=== PATIENT | female | born 1990 | race Caucasian/White ===

== ENCOUNTER 2025-01-22 11:38 | Emergency (ER) | payer MEDICAID, SELFPAY ==
[2025-01-22 11:56] VITALS: BP 105/73; PULSE 63; RESP 16; TEMP 35.9; O2SAT 100; BMI 16.8
--- OUTSIDE RECORDS SUMMARY | 2025-01-22 12:38 | XMS_ITS | Clinical Summary ---
Author Organization [facility] Address [address] [place] [id number] Care Team Providers Care Helpdesk Manager Name Role Phone Tyrell Tong MD Primary Care Provider [phone] Allergies Active Allergy Reactions Criticality Noted Date Comments Lamotrigine Other (See Comments) High 06/04/2018 confusion Medications LORazepam (ATIVAN) 1 MG tablet Take 1 mg by mouth every 6 hours as needed for anxiety or seizures Active omeprazole (PRILOSEC) [address] capsuleIndicatio ns:Alcohol use, unspecified with other alcohol-induced disorder (H) Take 1 capsule (20 mg) by mouth 2 times daily (before meals) 60 capsule 1 0 Active Additional Information Patient not taking.Informant: Self, Reported on 07/05/2021 levETIRAcetam (KEPPRA) 500 MG tabletIndication s:Focal epilepsy (H) TAKE 1 TABLET BY MOUTH EVERY MORNING AND 2 TABLETS BY MOUTH EVERY EVENING 270 tablet 1 0 Active midodrine (PROAMATINE) 10 MG tablet Take 10 mg by mouth 3 times daily Active potassium chloride ER (KLOR-CON M) 20 MEQ CR tablet Take 20 mEq by mouth daily (with breakfast) Active thiamine (B-1) 100 MG tabletIndication s:Alcohol use, unspecified with other alcohol-induced disorder (H) Take 1 tablet (100 mg) by mouth daily 30 tablet 1 0 Active lactulose (CHRONULAC) 10 GM/15ML solutionIndicati ons:Alcoholic cirrhosis of liver with ascites (H) Take 30 mLs (20 g) by mouth daily 946 mL 10/11/202 0 Active Additional Information Patient taking differently:20 g Oral3 TIMES DAILY, Reported on 06/30/2021 Multiple Vitamins-Mineral s (TAB-A-EDEL) TABSIndications: Alcohol use, unspecified with other alcohol-induced disorder (H) TAKE 1 TABLET BY MOUTH EVERY DAY 90 tablet 1 1 Active folic acid (FOLVITE) 1 MG tabletIndication s:Alcohol use, unspecified with other alcohol-induced disorder (H) Take 1 tablet (1 mg) by mouth daily 90 tablet 3 1 Active spironolactone (ALDACTONE) 25 MG tabletIndication s:Alcoholic cirrhosis of liver with ascites (H) Take 4 tablets (100 mg) by mouth daily 120 tablet 11 2 Active sulfamethoxazole -trimethoprim (BACTRIM/SEPTRA) 8 mg/mL suspension Take 35 mLs by mouth 2 times daily 2 Active XIFAXAN 550 MG TABS tablet Take 550 mg by mouth 2 times daily 2 Active vitamin A 3 MG (47383 UNITS) capsule Take 1 capsule by mouth three times a week 2 Active furosemide (LASIX) 20 MG tabletIndication s:Alcoholic hepatitis with ascites (H) Take 2 tablets (40 mg) by mouth daily 180 tablet 1 2 Active Active Problems Problem Noted Date Diagnosed Date Confusion 02/28/2020 Epilepsy 06/04/2019 Immunizations Immunization Administration Dates Next Due Flu, Unspecified 08/20/2016, 4,03/10/2013,02/15,03/09/2010 HPV Quadrivalent 07/29/2013,12/20/2012, 7 Hepatitis A (VAQTA)(ADULT 19+) 06/09/2019 Hepatitis B, Adult (Energix-B/Recombivax HB) 06/09/2019 Hepatitis B, Peds (Engerix-B/Recombivax HB) 09/04/2002 Historic Hib Hib-titer 11/14/1993,09/26/1990 Historical DTP/aP 11/14/1993, 1,04/17/1990,10/08 Influenza (H1N1) 03/30/2009 Influenza (IIV3) PF 03/09/2010,04/30/2009 Influenza Vaccine >6 months,quad, PF 06/09/2019, 08/20/2016 MMR (MMRII) 09/04/2002,11/14/1993 Meningococcal ACWY (Menactra ) 04/17/2007 OPV, unspecified 11/14/1993,04/17/1990, 0 Pneumococcal 23 valent 03/31/2014 TDAP Vaccine (Adacel) 02/16/2012 Tdap (Adult) Unspecified Formulation 09/04/2002 Social History Tobacco Use Types Packs/Day Years Used Date Smoking Tobacco: Never Smokeless Tobacco: Never Tobacco Cessation:Counseling Given: No Alcohol Use Standard Drinks/Week Comments Not Currently 5 (1 standard drink = 0.6 oz pur e alcohol) last drink 06/03/2019 PHQ-2 Answer Date Recorded PHQ-2 Score 0 06/30/2021 Adolescent Education Answer Date Record ed Getting School Help Needed Not on file 02/09 Comments Unknown Sex and Gender Information Value Date Recorded Sex Assigned at Female 05/19/2021 11:35 AM ADMINISTRATIVE SUPPORT COORDINATOR Legal Sex Female 12:34 PM CDT Gender Identity Female 05/19/2021 11:35 AM ADMINISTRATIVE SUPPORT COORDINATOR Sexual Orientation Straight 05/19/2021 11 :35 AM ADMINISTRATIVE SUPPORT COORDINATOR Last Filed Vital Signs Vital Sign Reading Time Taken Comments Blood Pressure 102/70 06/09/2021 10:25 AM ADMINISTRATIVE SUPPORT COORDINATOR Pulse 107 06/09/2021 10:25 AM ADMINISTRATIVE SUPPORT COORDINATOR Temperature 36.8 C (98.3 F) 02/29/2020 9:50 AM CDT Respiratory Rate 14 02/29/2020 9:50 AM CDT Oxygen Saturation 100% 06/09/2021 10:25 AM ADMINISTRATIVE SUPPORT COORDINATOR Inhaled Oxygen Concentration - - Weight 51.8 kg (114 lb 3.2 oz) 02/29/2020 6:41 A M CDT Height 167.6 cm (5' 6) 06/09/2021 10:25 AM ADMINISTRATIVE SUPPORT COORDINATOR Body Mass Index 18.43 07/30/2019 9:00 AM CDT Plan of Treatment Not on file Insurance [place]UL[place] CÉS[place] [id number] [facility] Advance Directives For more information, please contact: [phone] * Full Code (Latest Code Status on File) Date Activated Date Inactivated Comments 02/28/2020 3:58 PM 02/29/2020 6:26 PM All basic and advanced life-sustaining interventions are performed as appropriate Question Answer Comments Code status determined by: Discussion with patie nt/ legal decision maker * Full Code Date Activated Date Inactivated Comments 02/28/2020 2:45 AM 02/28/2020 3:58 PM All basic and advanced life-sustaining interventions are performed as appropriate Question Answer Comments Code status determined by: Unable to det ermine; FULL CODE until documents or legal decision maker available * Full Code Date Activated Date Inactivated Comments 06/09/2019 1:05 PM 02/28/2020 1:15 AM Question Answer Comments Code status determined by: Discussion with patie nt/legal decision maker * Full Code Date Activated Date Inactivated Comments 06/04/2019 10:57 AM 06/09/2019 1:05 PM Question Answer Comments Code status determined by: Discussion with patie nt/legal decision maker Care Teams Helpdesk Manager Relationship Specialty Start Date End Date Tyrell Tong MD [address] [facility] J[place] CÉSAR [place] [id number] PCP - General Family Practice 10/03/16
--- OUTSIDE RECORDS SUMMARY | 2025-01-22 12:38 | XMS_ITS | Clinical Summary ---
Author Organization [facility] Address [address] [place] [id number] Care Team Providers [employer] Name Role Phone William Sandhu MD Primary Care P rovider Allergies Active Allergy Reactions Criticality Noted Date Comments Blood-Group Specific Substance Other - Describe In Comment Field,Dizziness 05/25/2021 Patient has an anti-Kpa antibody and a nonspecific antibody. Blood products may be delayed. Draw patient 24 hours prior to transfusion. For [email or web address] testing, draw one red top and two purple top tubes for all Type and Screen orders. Patient has an anti-Kpa antibody and a nonspecific antibody. Blood products may be delayed. Draw patient 24 hours prior to transfusion. For [email or web address] testing, draw one red top and two purple top tubes for all Type and Screen orders. Lamotrigine Confusion,Seizures, Syncope,Other - Describe In Comment Field High 06/04/2018 confusion confusion Medications * This document contains information received from the source organization and may not represent a complete record from that organization. furosemide (LASIX) 40 mg tabletIndications: Alcoholic hepatitis with ascites (HC) Take 1 Tablet (40 mg) by mouth once daily in the morning. 90 Tablet 01/22/20 25 Active spironolactone (ALDACTONE) 100 mg tabletIndications: Decompensated hepatic cirrhosis (HC) Take 1 Tablet (100 mg) by mouth once daily in the morning. 90 Tablet 01/22/20 25 Active lactulose 10 gram/15 mL solutionIndication s:Decompensated hepatic cirrhosis (HC),Hyperammonemi a (HC) Take 30 mL (20 g) by mouth 3 times daily if needed for Constipation. 2700 mL 01/22/20 25 Active levETIRAcetam (KEPPRA) 500 mg tabletIndications: Seizure, partial (HC) Take 1 Tablet (500 mg) by mouth two times daily. 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 30 Tablet 1 01/22/20 25 Active folic acid 1 mg tabletIndications: Alcoholic hepatitis without ascites (HC) Take 1 Tablet (1 mg) by mouth once daily. 90 Tablet 3 01/22/20 25 Active folic acid 1 mg tabletIndications: Alcoholic hepatitis without ascites (HC) Take 1 Tablet (1 mg) by mouth once daily. 30 Tablet 1 06/20/19 025 Discontin ued(Reord er (E-cancel not sent)) levETIRAcetam (KEPPRA) 500 mg tabletIndications: Seizure, partial (HC) Take 1 Tablet (500 mg) by mouth two times daily. 60 Tablet 1 06/20/19 025 Discontin ued(Reord er (E-cancel not sent)) [id number]-A-[id number] ons:Alcoholic hepatitis with ascites (HC) Take 1 Tablet by mouth once daily. 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 30 Tablet 1 06/20/19 025 Discontin ued(Reord er (E-cancel not sent)) traZODone (DESYREL) 50 mg tabletIndications: Anxiety and depression Take 1 Tablet (50 mg) by mouth at bedtime if needed for Sleep. 30 Tablet 1 06/20/19 025 Discontin ued(*Med complete/ Regimen complete/ Level of care change) acamprosate 333 mg tablet Take 666 mg by mouth. 10/03/19 025 Discontin ued(*Med complete/ Regimen complete/ Level of care change) oxyCODONE 10 mg tablet 10/03/19 025 Discontin ued(*Med complete/ Regimen complete/ Level of care change) oxyCODONE 5 mg immediate release tabletIndications: Abdominal pain, epigastric Take 1 Tablet (5 mg) by mouth every 4 hours if needed for Pain. 10 Tablet 10/07/19 025 Discontin ued(*Med complete/ Regimen complete/ Level of care change) lidocaine 5 % topical patchIndications:A bdominal pain, epigastric Apply on dry, clean, hairless skin. Apply 1 patch to painful area of skin for up to to 12 hours within 24 hour period. 30 Patch 10/07/19 025 Discontin ued(*Med complete/ Regimen complete/ Level of care change) rifAXIMin 550 mg tabletIndications: Abdominal pain, epigastric,Acute hepatic encephalopathy (HC) Take 1 Tablet (550 mg) by mouth two times daily. 60 Tablet 5 10/07/19 025 Discontin ued(*Med complete/ Regimen complete/ Level of care change) furosemide 20 mg tabletIndications: Alcoholic hepatitis with ascites (HC) Take 2 Tablets (40 mg) by mouth once daily in the morning. 180 Tablet 1 10/28/19 25 025 Discontin ued(Reord er (E-cancel not sent)) spironolactone 25 mg tabletIndications: Decompensated hepatic cirrhosis (HC) Take 4 Tablets (100 mg) by mouth once daily in the morning. 360 Tablet 1 10/28/19 25 025 Discontin ued(Reord er (E-cancel not sent)) famotidine 20 mg tabletIndications: Abdominal pain, epigastric Take 1 Tablet (20 mg) by mouth two times daily. 180 Tablet 3 10/28/19 25 025 Discontin ued(*Med complete/ Regimen complete/ Level of care change) lactulose 10 gram/15 mL solutionIndication s:Decompensated hepatic cirrhosis (HC),Hyperammonemi a (HC) TAKE 30 MLS BY MOUTH THREE TIMES DAILY NEEDED FOR CONSTIPATION 2700 mL 3 10/30/19 25 025 Discontin ued(Reord er (E-cancel not sent)) gabapentin (NEURONTIN) 300 mg capsuleIndications :Alcohol use disorder, severe, dependence (HC) TAKE 1 CAPSULE(300 MG) BY MOUTH THREE TIMES DAILY 270 Capsule 12/12/19 25 025 Discontin ued(*Med complete/ Regimen complete/ Level of care change) Active Problems Problem Noted Date Diagnosed Date Stage 3 chronic kidney disease 01/19/2025 Overview (01/21/2025): 10/01/24: Cr 1.34 mg/dL 10/01/24: GFR 53 mL/min/BSA 10/01/24: BUN 13 mg/dL On meds: folic acid, furosemide, potassium chloride, spironolactone, zinc sulfate AI Summary: The patient had a history of decompensated alcoholic liver disease, severe protein calorie malnutrition, and chronic kidney disease, as mentioned on 08/31/2021. The patient was also noted to have chronic renal failure, unspecified CKD stage N18.9 on 08/31/2021. On 07/13/2021, the patient was noted to have severe anemia, chronic liver failure, chronic kidney disease, and chronic leukocytosis, and on 07/16/2021, the patient was assessed to have acute kidney injury on chronic kidney disease. 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 Recommend nonemergent, outpatient CT or MR with a pancreatic protocol for further assessment. 06/20/2023 CT Seizure disorder 06/20/2023 Chronic pancreatitis 07/03/2022 Overview (01/19/2025): AI Summary: As of 09/25/24: The patient has a history of chronic pancreatitis, alcohol- related, with imaging findings consistent with the condition, including scattered pancreatic parenchymal calcifications and a cystic lesion in the pancreatic tail. The patient underwent IR coil embolization of the right gastroepiploic artery and Gelfoam embolization of the PDA pancreaticoduodenal arcade on 07/21/2021. There is mention of possible [id number] pancreatitis, but this is not definitively confirmed. 10/01/24: HR 74.0 /min 10/01/24: BP 100/65 09/21/24: Lipase 227 U/L On meds: folic acid, furosemide, potassium chloride, spironolactone, zinc sulfate Recent encounter dx: 06/29/23: Office Visit - Division of Gastroenterology in [place], [place], Gastroenterology and Hepatology (from [facility]) 04/26/23: Appointment - [facility] 01/25/23: Appointment - [facility] 07/03/22: Appointment - [facility] 07/13/21: Discharge - [facility], [facility], Recent studies: 09/21/24: Interpretation of Outside CT Abdomen and or Pelvis by Bernabe Sewell M.D. (from [facility]) ... [-] 1. Sequelae of chronic pancreatitis with possible uncomplicated acute on chronic pancreatitis. 2. Pancreatic cystic lesions, better evaluated on abdominal MRI 06/29/2023. 3. Bilateral nonobstructing renal calculi. No hydronephrosis. No obstructing ureteral calculi. 4. Patchy opacities in the lung bases, likely a combination of infectious/inflammatory process and atelectasis. ... [-] Sequelae of chronic pancreatitis with possible uncomplicated acute on chronic pancreatitis. ... [+] Scattered pancreatic parenchymal calcifications consistent with chronic pancreatitis. 09/20/24: Outside CT Body by Provider Not In System (from [facility]) ... [-] Pancreas: Scattered calcifications suggestive of chronic pancreatitis. 06/29/23: mr abdomen mrcp without and with iv contrast by Mouna Salazar M.D. (from [facility]) ... [-] No significant change in the multiple cystic pancreatic lesions which may represent IPMN's rather than pseudocyst. No other concerning MR features such as nodules or septations. Diffuse pancreatic parenchymal atrophy with mild pancreatic ductal dilatation in the tail of pancreas, likely sequelae of prior chronic pancreatitis. ... [-] Diffuse pancreatic parenchymal atrophy with mild pancreatic ductal dilatation in the tail of pancreas, likely sequelae of prior chronic pancreatitis. Recent notes: 09/25/24: Discharge Summaries - Transfer Note by Ebenezer Mix, B.Ch., B.A.O. (from [facility]) ... [+] Edna Garza is a 34 y.o. female with a past medical history significant for alcohol abuse, alcoholic cirrhosis, SBP (previously on ciprofloxacin), hepatic encephalopathy, focal seizures (on Keppra), chronic pancreatitis, cystic mass on pancreas, anxiety, and depression. 09/25/24: Consult Notes - Consults by Dolly Pepe RDN, TULIO, M.P.H. (from [facility]) ... [+] Medical History[1] alcohol abuse, alcoholic cirrhosis, chronic pancreatitis, cystic mass on pancreas, anxiety, and depression 09/25/24: Discharge Summaries - Transfer Note by Ebenezer Foster, B.Chir. (from [facility]) ... [+] BRIEF SUMMARY OF HOSPITALIZATION Edna Garza is a 34 y.o. female with a past medical history significant for alcohol abuse, alcoholic cirrhosis, SBP (previously on ciprofloxacin), hepatic encephalopathy, focal seizures (on Keppra), chronic pancreatitis, cystic mass on pancreas, anxiety, and depression. ... [+] #8 History of chronic pancreatitis, alcohol-related 09/25/24: H&P Notes - H&P by Kd Velez M.D. (from [facility]) ... [+] In brief, Edna Garza is a 34 y.o. female with a past medical history significant for alcohol use disorder, chronic pancreatitis with cysts, anxiety depression with initial hospitalization in the setting of acute drug- induced liver injury in the setting of decompensated hepatic cirrhosis due to alcohol use. ... [-] #6 Chronic pancreatitis 09/25/24: Discharge Summaries - Transfe r Note by Bernabe Sewell M.D. (from [facility]) ... [+] Chronic pancreatitis s/p IR coil embolization of the right gastroepiploic artery and Gelfoam embolization of the PDA pancreaticoduodenal arcade (07/21/21) Acute upper GI bleeding 05/31/2021 Liver cirrhosis 05/06/2021 Overview (01/19/2025): AI Summary: As of 09/25/24: The patient has a history of decompensated alcoholic cirrhosis, complicated by acetaminophen and alcohol use, leading to acute liver injury and septic shock from a polymicrobial bloodstream infection (Streptococcus, E. coli, and Enterobacteriaceae). The patient also has a history of spontaneous bacterial peritonitis (SBP), hepatic encephalopathy, chronic pancreatitis, and alcohol abuse. Treatment included N-acetylcysteine (NAC) for acetaminophen overdose (09/21-09/24) and spironolactone for decompensated hepatic cirrhosis (prescribed on multiple occasions between 05/20/2021 and 06/20/2024), along with zinc sulfate prescribed on 06/20/2024 for the same reason. 05/23/16: GGT 472 IU/L 09/29/24: T Mario 0.8 mg/dL 09/25/24: INR 1.6 On meds: furosemide, spironolactone Recent encounter dx: 06/30/24: Appointment - [facility] 06/20/24: Appointment - [facility] 05/02/24: Appointment - [facility] 04/12/24: Support OP Encounter - [facility] 03/11/24: Support OP Encounter - [facility] Recent studies: 06/20/23: CT CHEST ABDOMEN PELVIS WO by Jorge Zacarias DO, Bud Fajardo MD ... [+] INDICATION: Polytrauma, blunt cirrhosis, altered LOC, chest contusion ... [+] ABDOMEN AND PELVIS: Slightly nodular hepatic contour which can be seen with cirrhosis. ... [+] 1. No obvious unenhanced CT evidence of an acute traumatic injury involving the chest, abdomen, or pelvis. 2. Examination the osseous structures is limited secondary to motion artifact, particularly the ribs, with no definitive displaced fractures or malalignment. If there is clinical concern for fracture, would recommend dedicated radiographs of the specific osseous structures. 3. Atrophic pa... 08/18/21: US Kidneys Bilateral with Bladder by Zoila Morales M.D. (from [facility]) ... [+] 1. Mild prominence of the left renal pelvis with no significant hydronephrosis. 2. Cirrhosis and large volume abdominopelvic ascites. ... [+] Cirrhosis and large volume abdominopelvic ascites. ... [-] Liver: Coarsened hepatic echotexture with surface nodularity compatible with cirrhosis. 08/17/21: ct abdomen pelvis with iv contrast by Ulisses Mccartney M.D. (from [facility]) ... [+] 1. Interval decrease in peripancreatic fluid collections for example the largest measures 3.5 cm, previously 6.9 cm. 2. Cirrhosis with large volume ascites 3. Bowel wall thickening of the large bowel at the hepatic flexure, nonspecific likely reactive or secondary to low protein state. ... [-] No new collections identified Cirrhosis. 06/12/21: CT CHEST ABDOMEN PELVIS WO by Bud Steve MD, Chriss Jimenez MD ... [+] In the abdomen, the liver is now seen to be small and nodular representing new cirrhosis. ... [+] CT of the abdomen shows new nodularity of the liver with new decrease in size consistent with new cirrhosis. No sign of portosystemic shunting. No sign of splenomegaly. 06/09/21: XR Chest 2 Views by Sb Boateng PA-C (from [place]) ... [+] pleural effusion, worsening WBC; Alcoholic cirrhosis of liver with ascites (H); Alcoholic hepatitis with ascites Recent notes: 09/25/24: Discharge Summaries - Transfer Note by Cheryl Mix., B.Ch., B.A.O. (from [facility]) ... [+] Edna Garza is a 34 y.o. female with a past medical history significant for alcohol abuse, alcoholic cirrhosis, SBP (previously on ciprofloxacin), hepatic encephalopathy, focal seizures (on Keppra), chronic pancreatitis, cystic mass on pancreas, anxiety, and depression. ... [+] Thrombocytopenia likely in the setting of cirrhosis and chronic alcohol use leading to bone marrow suppression and nutritional deficiencies. 09/25/24: Consult Notes - Consults by Dolly Pepe RDN, TULIO, M.P.H. (from [facility]) ... [+] Medical History[1] alcohol abuse, alcoholic cirrhosis, chronic pancreatitis, cystic mass on pancreas, anxiety, and depression ... [+] Alcoholic Cirrhosis Of Liver With Ascites (HCC) 08/19/2021 09/25/24: Discharge Summaries - Transfer Note by Ebenezer Fostre , B.Chir. (from [facility]) ... [+] BRIEF SUMMARY OF HOSPITALIZATION Edna Garza is a 34 y.o. female with a past medical history significant for alcohol abuse, alcoholic cirrhosis, SBP (previously on ciprofloxacin), hepatic encephalopathy, focal seizures (on Keppra), chronic pancreatitis, cystic mass on pancreas, anxiety, and depression. ... [+] #1 Decompensated alcoholic cirrhosis, with the acute injury this hospitalization primarily secondary to ischemic hepatopathy, contributed to also by recent acetaminophen and alcohol use. 09/25/24: Consult Notes - Consults by Barney Griggs M.D. (from [facility]) ... [+] Ms. Garza is a 34-year-old female with decompensated cirrhosis who was initially admitted for shock likely secondary to polymicrobial bloodstream infection. 09/25/24: H&P Notes - H&P by Kd Velez M.D. (from [facility]) ... [-] In brief, Edna Garza is a 34 y.o. female with a past medical history significant for alcohol use disorder, chronic pancreatitis with cysts, anxiety depression with initial hospitalization in the setting of acute drug- induced liver injury in the setting of decompensated hepatic cirrhosis due to alcohol use. ... [+] #1 Decompensated alcoholic cirrhosis complicated by acetaminophen use Alcoholic liver disease 05/06/2021 Hypomagnesemia 11/28/2019 History of alcohol abuse 11/28/2019 Anemia 11/28/2019 Hyponatremia 11/28/2019 Amenorrhea 07/11/2018 Alcohol-induced acute pancre atitis without infection or necrosis 08/19/2016 Anxiety and depression 03/29/2014 Overdose of muscle relaxant 03/28/2014 Eating disorder Resolved Problems Problem Noted Date Diagnosed Date Resolved Date Alcoholic hepatitis 01/19/2025 01/20/20 25 Overview (01/19/2025): AI Summary: As of 09/25/24: The patient has a history of alcoholic hepatitis without ascites, first noted on 05/23/2016. Treatment has included thiamine and folic acid, prescribed on multiple occasions between 12/01/2019 and 06/20/2024, as well as prednisolone (05/11/2021), omeprazole (12/01/2019, 04/05/2020, 10/12/2020), furosemide and spironolactone (12/01/2019). The patient's condition was mentioned in various notes as an active problem, primary diagnosis, and reason for medication prescriptions. 05/23/16: GGT 472 IU/L 09/29/24: T Mario 0.8 mg/dL 09/25/24: INR 1.6 On meds: furosemide, gabapentin, levetiracetam, spironolactone Recent encounter dx: 07/04/24: Appointment - [facility] 06/20/24: Appointment - [facility] 12/12/23: Support OP Encounter - [facility] 07/01/23: Support OP Encounter - [facility] 10/13/22: Appointment - [facility] Recent notes: 09/25/24: Consult Notes - Consults by Dolly Pepe RDN, LD, M.P.H. (from [facility]) ... [+] Alcoholic Hepatitis Without Ascites (HCC) 05/23/2016 09/20/24: ED Provider Note by JUAN JOSÉ Flores ... [-] Edna Garza is a 34 y.o. female with a medical history of alcoholic hepatitis without ascites, cystic mass on pancreas, chronic pancreatitis, anxiety, depression, anemia, alcohol abuse who presents to the Emergency Department by private vehicle for evaluation of abdominal pain. ... [+] Alcoholic hepatitis without ascites (HC) 07/04/24: Progress Notes - Follow up by Nash Paredes MD ... [-] Alcoholic hepatitis without ascites (Primary) 04/29/24: ED Provider Note by Drew Kenny MD ... [+] ? Alcoholic hepatitis without ascites 05/23/2016 12/13/23: Progress Notes by Yosi Maciel MD ... [+] ? Alcoholic hepatitis without ascites K70.10 Intentional overdose 01/22/2024 025 Enterococcus UTI 06/22/2023 01/19/2025 Anemia 06/21/2023 01/19/2025 Encephalopathy 06/20/2023 01/19/2025 Chest wall contusion 06/20/2023 025 Elevated MCV 06/20/2023 01/19/2025 Elevated TSH 06/20/2023 01/19/2025 Alcoholic hepatitis with ascites 07/05/2021 01/19/2025 Acute on chronic alcoholic liver disease 05/31/2021 01/19/2025 Metabolic acidosis 05/31/2021 Acute blood loss anemia 05/31/2021 09/0 05/2024 UTI (urinary tract infection) 05/31/2021 01/19/2025 Generalized weakness 05/30/2021 025 Hyperammonemia 05/20/2021 07/02/2023 Decompensated hepatic cirrhosis 05/08/2021 01/19/2025 Elevation of level of transa minase and lactic acid dehydrogenase (LDH) 05/06/2021 01/19/2025 Lactic acid increased 05/06/20212024 Metabolic acidosis, normal anion gap (NAG) 05/06/2021 01/19/2025 Jaundice 05/06/2021 01/19/2025 UTI (urinary tract infection) 05/06/2021 01/19/2025 Macrocytic anemia 05/06/2021 01/19/2025 Chronic respiratory alkalosis 11/30/2019 01/19/2025 Hypotension 11/30/2019 01/21/2025 Hypokalemia 11/28/2019 01/19/2025 Alcoholic liver damage 11/28/201901/19 Suspected COVID-19 virus infection 11/28/2019 01/19/2025 Severe protein-calorie malnutrition 11/28/2019 01/21/2025 Sore throat 11/28/2019 01/19/2025 Acute hepatic encephalopathy 11/28/2019 01/19/2025 Elevated prolactin level 11/28/201905/2024 Cystitis 05/25/2016 01/19/2025 Alcohol withdrawal delirium 05/24/2016 01/19/2025 Alcoholic hepatitis without ascites 05/23/2016 01/19/2025 Macrocytosis 05/23/2016 01/19/2025 Alcohol dependence with unsp ecified alcohol-induced disorder 03/28/2014 01/19/2025 Overview (01/19/2025): AI Summary: As of 09/20/24: The patient had a history of alcohol dependence with an unspecified alcohol-induced disorder (F10.29) as of 09/20/2024. 01/25/24: TSH 2.13 uIU/mL 10/01/24: Glu 102 mg/dL On meds: gabapentin, traZODone Recent encounter dx: 09/20/24: Discharge - [facility], [facility], [facility], [facility] / [facility] Recent notes: 09/20/24: ED Provider Note - Emergency Department Staff Physician Note by Asuncion Freire MD ... [+] Alcohol dependence with unspecified alcohol-induced disorder (HC) F10.29 Elevated liver enzymes 03/28/201401/19 Alcohol abuse 05/21/2013 01/19/2025 Overview (05/23/2016): s/p treatment IUD (intrauterine device) in place 08/19/2012 01/21/2025 Supervision of other normal 11/08/2011 08/26/2012 Overview (06/11/2012): It's a boy. Mildly enlarged renal pelvis on 20 wk us TDaP and flu vaccine given 02/16/2012 GBS negative Supervision of normal first 04/30/2009 12/18/2011 Asymptomatic bacteriuria 03/30/2009 Bacterial vaginosis 03/30/2009 12/18/19 12 Acute pharyngitis 09/03/2006 04/30/2009 Overview (09/03/2006): multiple episodes Nocturnal enuresis 09/03/2006 7 Alcohol abuse 01/19/2025 Overview (03/28/2014): s/p treatment Encounters Date Type Department Care Team Description 01/21/2025 1:25 PM CDT Office Visit [facility] [address] [place] [address] William Sandhu MD Establish Care (Medications ); Immunization/Injectio n 01/21/2025 Travel 12/08/2024 Refill [facility] [address] [place] [address] Librado Tong MD Refill Request (Gabapentin) 11/17/2024 2:15 PM CDT Telemedicine [facility] [address] [place] [address] Lloyd Cleveland, [facility] Trmt Plan 10/27/2024 9:10 AM CDT Office Visit [facility] [address] [place] [address] Librado Tong MD Medication Management (needs refills); Hospital F/U 10/27/2024 Refill [facility] [address] [place] [address] Librado Tong MD Refill Request (Lactulose) 10/27/2024 Travel from Last 3 Months Immunizations Immunization Administration Dates Next Due DTP 11/14/1993, 1,04/17/1990,10/08 HIB HbOC (HibTITER) 11/14/1993,09/26/1990 Hepatitis A (Adult) 06/09/2019 Hepatitis B (Adult) 01/21/2025,06/09/2019 Hepatitis B (Peds) 09/04/2002 Human Papilloma Virus Vaccine 07/29/2013, 013,04/17/2007 Influenza A (H1N1), Inactivated 03/30/2009 Influenza Virus, Unspecified 08/20/2016, 03/30/2014,03/10/2013,02/15,03/09/2010,04/30/2009 Influenza, IIV3 (Age >=3 years) 03/10/20 13,02/16/2012,03/09/2010,04/30 Influenza, IIV4 05/11/2021, 0,08/20/2016,03/30 MMR 09/04/2002,11/14/1993 Meningococcal Vaccine (Menactra) 04/17/2007 Oral Polio Vaccine 11/14/1993,04/17/1990, 990 Pneumococcal Conj 20-valent (Prevnar 20) 01/21/2025 Pneumococcal Poly,23-Valent (Pneumovax) 03/31/2014 TD, UNSPECIFIED 09/04/2002 Td (Age >=7 Years) 09/04/2002 Tdap 01/21/2025,02/16/2012 Family History Medical History Relation Name Comments Hypertension Father Hypertension Mother Relation Name Status Comments Father Alive Mother Alive Social History Tobacco Use Types Packs/Day Years Used Date Smoking Tobacco: Former Cigarettes 0.2 6.1 S tarted: 12/12/2018 Passive Smoke Exposure: Past Smokeless Tobacco: Never Tobacco Cessation:Counseling Given: Not Answered Alcohol Use Standard Drinks/Week Comments Not Currently 7 (1 standard drink = 0.6 oz pur e alcohol) PHQ-2 Answer Date Recorded PHQ-2 TOTAL SCORE 1 06/20/2024 Social Connections Answer Date Recorded Do you often feel lonely or isolated from those around you? 4 01/24/2024 Alcohol Use Answer Date Recorded How often do you have a drink containing alcohol ? 3 01/28/2024 How many drinks containing a lcohol do you have on a typical day when you are drinking? 2 01/28/2024 How often do you have five or more drinks on one occasion? 3 01/28/2024 Financial Resource Strain Answer Date R ecorded Difficulty of Paying Living Expenses 3 06/21/2023 Difficulty of Paying Living Expenses Not on file 06/21/2023 Food Insecurity Answer Date Recorded Do you worry your food will run out before you are able to buy more? 1 01/24/2024 Transportation Needs Answer Date Record ed Does lack of transportation keep you from medica l appointments? 1 01/24/2024 Does lack of transportation keep you from work, meetings or getting things that you need? 1 01/24/2024 Housing Stability Answer Date Recorded What is your housing situation today? 1 01/24/2024 Interpersonal Safety Answer Date Record ed Are you being hit, kicked, p ushed or yelled at (see row info)? No 09/20/2024 Interpersonal Safety Abuse 12 - 18 Not on file 09/20/2024 Interpersonal Safety Ambulatory Vulnerability No t on file 09/20/2024 Utilities Answer Date Recorded Do you have trouble paying f or utilities (for example, heat, electricity, water, phone)? 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 Please review and update details. 012 Term 40w 0d 7h 00m/ 3.26 kg (7 lb 3 oz) F Vag Bess h Last Filed Vital Signs Vital Sign Reading Time Taken Comments Blood Pressure 108/70 01/21/2025 2:17 PM CDT Pulse 70 01/21/2025 1:19 PM CDT Temperature 36.6 C (97.9 F) 09/20/2024 3:40 PM CDT Respiratory Rate 16 10/06/2024 10:11 AM CDT Oxygen Saturation 99% 01/21/2025 1:19 PM CDT Inhaled Oxygen Concentration - - Weight 59.4 kg (131 lb) 09/20/2024 3:38 PM CDT Height 167.6 cm (5' 6) 10/27/2024 9:24 AM CDT Body Mass Index 20.52 09/20/2024 3:38 PM CDT Plan of Treatment Upcoming Encounters Date Type Department Care Team (Late st Contact Info) Description 02/20/2025 1:00 PM CDT Office Visit [facility] [address] [facility] 1929[facility] [address] William Sandhu MD [address] [place] [address] 04/09/2025 10:30 AM FISHER CRAB Office Visit [facility] [address] [place] [address] Chon Garcia MD [address] [place] [address] Health Maintenance Due Date Last Done Comments Pap test for age 21-65 10/13/2023 , 12/18/2011, 03/30/2009 BMI (ht and wt on same day) for age 18+ 07/02/2024 07/02/2023, 01/10/2022, 10/12/2020, Additional history exists COVID-19 vaccine series ( season) 2025 Influenza Vaccine (#1) 2025 , 06/09/2019, 08/20/2016, Additional history exists Depression screening for age 12+ 06/24/2025 06/24/2024, 06/20/2024, 02/19/2024, Additional history exists Tetanus booster 01/21/2035 01/21/2025, 01/20, 09/04/2002, Additional history exists RSV vaccine for adults or (1 - 1-dose 75+ series) 2064 HIV for age 15-65 Completed 03/07/2024, , 11/08/2011, Additional history exists Hepatitis C screening for ag e 18-79 Completed 06/20/2024, 05/09/2021 Hepatitis B series for 19+ Completed 01/21, 06/09/2019, 09/04/2002 Pneumococcal series for age 6-49 Completed 01/22/20, 03/31/2014 Procedures Procedure Name Priority Date/Time Associated Diagnosis Comments GC CHLAMYDIA TRACH PROBE Routine 01/21/2025 2:36 PM CDT Possible exposure to STD LIPASE Routine 01/21/2025 2:36 PM CDT Alcoholic cirrhosis of liver with ascites (HC) HEMOGLOBIN A1C Routine 01/21/2025 2:36 PM CDT Diabetes mellitus screening PROTIME-INR Routine 01/21/2025 2:36 PM CDT Alcoholic cirrhosis of liver with ascites (HC) Anemia, unspecified type Hyponatremia Stage 3 chronic kidney disease, unspecified whether stage 3a or 3b CKD (HC) CBC W PLT NO DIFF Routine 01/21/2025 2:3 6 PM CDT Alcoholic cirrhosis of liver with ascites (HC) Anemia, unspecified type Hyponatremia Stage 3 chronic kidney disease, unspecified whether stage 3a or 3b CKD (HC) COMP METABOLIC PANEL Routine 01/21/2025 2:36 PM CDT Alcoholic cirrhosis of liver with ascites (HC) Anemia, unspecified type Hyponatremia Stage 3 chronic kidney disease, unspecified whether stage 3a or 3b CKD (HC) ANTI HCV Routine 06/20/2024 2:23 PM FISHER CRAB Routine screening for STI (sexually transmitted infection) HIV 1/2 ANTIGEN/ANTIBODY FOURTH GENERATION W/RFL ([facility]) Routine 03/07/2024 2:57 PM CDT Screen for STD (sexually transmitted disease) BALE BREAKER OPERATOR THIN PREP PAP SCREEN IMAGED Routine 10/12/2020 2:30 PM CDT Pap smear for cervical cancer screening from Last 3 Months or Most Recently Relevant to Health Maintenance Results * HEMOGLOBIN A1C (01/21/2025 2:36 PM CDT) HEMOGLOBIN A1C 5.2 <5.7 % 01/22/2025 6:02 AM CDT [facility] Comment: For the purpose of screening for the presence of diabetes: <5.7% Consistent with the absence of diabetes 5.7-6.4% Consistent with increased risk for diabetes (prediabetes) > or =6.5% Consistent with diabetes This assay result is consistent with a decreased risk of diabetes. Currently, no consensus exists regarding use of hemoglobin A1c for diagnosis of diabetes in children. According to [place] Diabetes Association (ADA) guidelines, hemoglobin A1c <7.0% represents optimal control in non- diabetic patients. Different metrics may apply to specific patient populations. Standards of Medical Care in Diabetes(ADA). Blood BLOOD SPECIMEN / Unknown [facility] Collect / Unknown 01/21/2025 2:36 PM CDT 01/21/2025 2:37 PM CDT William Sandhu MD CHEMISTRY Final Result Performing Organization Address City/[facility]/ZIP Co de Phone Number [facility] [address] [address], * GC & CHLAMYDIA DNA PCR [[id number]] (01/21/2025 2:36 PM CDT) CHLAMYDIA PROBE Negative 10:42 AM CDT [facility] N GONORRHOEAE PROBE Negative 01/22/2025 10:42 AM CDT [facility] Other URINE SPECIMEN / Unknown Non-Blood / Unknown 01/21/2025 2:36 PM CDT 01/21/2025 2:37 PM CDT William Sandhu MD MICROBIOLOGY Final Result [facility] [address] [place] [address], * (ABNORMAL) CBC W PLT NO DIFF (01/21/2025 2:36 PM CDT) WHITE BLOOD CELL COUNT 4.7 3.8 - 10.8 Thousand/ uL 01/22/2025 3:55 AM CDT [facility] RED BLOOD CELL COUNT 3.54(L) 3.80 - 5.10 Million/u L 01/22/2025 3:55 AM CDT [facility] HEMOGLOBIN 11.9 11.7 - 15.5 g/dL 01/22/2025 3:55 AM CDT [facility] HEMATOCRIT 36.1 35.0 - 45.0 % 01/22/2025 3:55 AM CDT [facility] MCV 102.0(H) 80.0 - 100.0 fL 01/22/2025 3:55 AM CDT [facility] MCH 33.6(H) 27.0 - 33.0 pg 01/22/2025 3:55 AM CDT [facility] MCHC 33.0 32.0 - 36.0 g/dL 01/22/2025 3:55 AM CDT [facility] Comment: For adults, a slight decrease in the calculated MCHC value (in the range of 30 to 32 g/dL) is most likely not clinically significant; however, it should be interpreted with caution in correlation with other red cell parameters and the patient's clinical condition. RDW 12.9 11.0 - 15.0 % 01/22/2025 3:55 AM CDT [facility] PLATELET COUNT 297 140 - 400 Thousand/ uL 01/22/2025 3:55 AM CDT [facility] MPV 9.6 7.5 - 12.5 fL 01/22/2025 3:55 AM CDT [facility] Blood BLOOD SPECIMEN / Unknown [facility] Collect / Unknown 01/21/2025 2:36 PM CDT 01/21/2025 2:37 PM CDT William Sandhu MD HEMATOLOGY Final Result [facility] [id number] [place] [address], * PROTIME-INR (01/21/2025 2:36 PM CDT) INR 1.0 <1.3 01/21/2025 10:27 PM CDT [facility] PROTIME 10.9 10.6 - 12.4 sec 01/21/2025 10:27 PM CDT [facility] Blood BLOOD SPECIMEN / Unknown [facility] Collect / Unknown 01/21/2025 2:36 PM CDT 01/21/2025 2:37 PM CDT Narrative [facility] - 01/21/2025 10:27 PM CDT Therapeutic Range 2.0-3.0 for most anticoagulated patients 2.5-3.5 or 4.0 for high risk patients The INR is only used for patients on stable oral anticoagulant therapy. It makes no significant contribution to the diagnosis or treatment of patients whose Protime is prolonged for other reasons. INR results are increased when heparin levels exceed 1.0 U/mL, which corresponds to an aPTT >125 seconds if the patient is on UFH. William Sandhu MD HEMATOLOGY Final Result Performing Organization Address City/[facility]/ZIP Co de Phone Number [facility] [address] [place] [address], * (ABNORMAL) LIPASE (01/21/2025 2:36 PM CDT) LIPASE 5(L) 7 - 60 U/L 01/22/2025 7:00 AM CDT [facility] Blood BLOOD SPECIMEN / Unknown [facility] Collect / Unknown 01/21/2025 2:36 PM CDT 01/21/2025 2:37 PM CDT William Sandhu MD CHEMISTRY Final Result [facility] [address] [place] [address], [place] [phone] * (ABNORMAL) COMP METABOLIC PANEL (01/21/2025 2:36 PM CDT) SODIUM 136 135 - 146 mmol/L 01/22/2025 7:00 AM CDT [facility] POTASSIUM 2.5(LL) 3.5 - 5.3 mmol/L 01/22/2025 7:00 AM CDT [facility] Comment:Verified by repeat a nalysis. CHLORIDE 94(L) 98 - 110 mmol/L 01/22/2025 7:00 AM CDT [facility] CARBON DIOXIDE 29 20 - 32 mmol/L 01/22/2025 7:00 AM CDT [facility] GLUCOSE 91 65 - 99 mg/dL 01/22/2025 7:00 AM CDT [facility] Comment: Fasting reference interval CALCIUM 9.6 8.6 - 10.2 mg/dL 01/22/2025 7:00 AM CDT [facility] CREATININE 1.37(H) 0.50 - 0.97 mg/dL 01/22/2025 7:00 AM CDT [facility] BUN/CREATININE RATIO 9 6 - 22 (calc) 01/22/2025 7:00 AM CDT [facility] EGFR 52(L) > OR = 60 mL/min/1. 73m2 01/22/2025 7:00 AM CDT [facility] ALBUMIN 4.4 3.6 - 5.1 g/dL 01/22/2025 7:00 AM CDT [facility] PROTEIN, TOTAL 7.6 6.1 - 8.1 g/dL 01/22/2025 7:00 AM CDT [facility] BILIRUBIN, TOTAL 0.6 0.2 - 1.2 mg/dL 01/22/2025 7:00 AM CDT [facility] ALKALINE PHOSPHATASE 114 31 - 125 U/L 01/22/2025 7:00 AM CDT [facility] ALT 24 6 - 29 U/L 01/22/2025 7:00 AM CDT [facility] AST 54(H) 10 - 30 U/L 01/22/2025 7:00 AM CDT [facility] UREA NITROGEN (BUN) 13 7 - 25 mg/dL 01/22/2025 7:00 AM CDT [facility] GLOBULIN 3.2 1.9 - 3.7 g/dL (calc) 01/22/2025 7:00 AM CDT [facility] ALBUMIN/GLOBULIN RATIO 1.4 1.0 - 2.5 (calc) 01/22/2025 7:00 AM CDT [facility] Blood BLOOD SPECIMEN / Unknown [facility] Collect / Unknown 01/21/2025 2:36 PM CDT 01/21/2025 2:37 PM CDT William Sandhu MD CHEMISTRY Final Result [facility] [address] [place] [address], [place] [phone] * ANTI HCV (06/20/2024 2:23 PM FISHER CRAB) HEPATITIS C ANTIBODY Negative Negative 06/20/2024 6:26 PM FISHER CRAB [facility] Comment:Anti-HCV IgG not det ected. Patient is presumed not to be infected with HCV. Blood BLOOD SPECIMEN / Unknown Venipuncture / Unknown 06/20/2024 2:23 PM FISHER CRAB 06/20/2024 2:34 PM FISHER CRAB Nash Paredes MD SEND OUTS Final Result Performing Organization Address City/[facility]/ZIP Co de Phone Number [facility] [address] [place] [address] * HIV 1/2 AG/AB 4TH GEN W/RFL ([facility]) (03/07/2024 2:57 PM CDT) Pathologist [facility] [place] HIV AG/AB, 4TH GEN NON-REACT SUNIL NON-REACT SUNIL [facility] Comment: HIV-1 antigen and HIV-1/HIV-2 antibodies were not detected. There is no laboratory evidence of HIV infection. PLEASE NOTE: This information has been disclosed to you from records whose confidentiality may be protected by state law. If your state requires such protection, then the state law prohibits you from making any further disclosure of the information without the specific written consent of the person to whom it pertains, or as otherwise permitted by law. A general authorization for the release of medical or other information is NOT sufficient for this purpose. For additional information please refer to http://education.[employer]cie.[employer]/faq/AYX132 (This link is being provided for informational/ educational purposes only.) The performance of this assay has not been clinically validated in patients less than 2 years old. Blood BLOOD SPECIMEN / Unknown 03/07/2024 2:57 PM CDT 03/07/2024 3:05 PM CDT us Librado Tong MD SEND OUTS Final Result [facility] [address] [place] [address], [facility] [address] [place] [address] * BALE BREAKER OPERATOR THIN PREP PAP SCREEN IMAGED (10/12/2020 2:30 PM CDT) Case Report Gynecologic Cytology Report Case: [id number] Authorizing Provider: Librado Tong, Collected: 10/12/2020 1430 Ordering Location: [email or web address] Received: 10/12/2020 [facility] First Screen: Barbara Joel Specimen: BALE BREAKER OPERATOR ThinPrep Vial Screening, Cervical 10/21/2020 8:58 AM CDT [facility] INTERPRETATION/ RESULT NEGATIVE FOR INTRAEPITHELIAL LESION OR MALIGNANCY (NIL) (none) 10/21/2020 8:58 AM CDT [facility] at 0858 CDT ORGANISM(S) Shift in yomaira suggestive of bacterial vaginosis 10/21/2020 8:58 AM CDT [facility] SPECIMEN ADEQUACY Satisfactory for evaluation No endocervical component seen 10/21/2020 8:58 AM CDT [facility] HPV REQUEST HPV if ASCUS 10/21/2020 8:58 AM CDT [facility] Date of LMP 1 year ago 10/21/2020 8:58 AM CDT [facility] Last Pap Date unknown 10/21/2020 8:58 AM CDT [facility] Last Pap Result NIL 8:58 AM CDT [facility] Abnormal Pap or [place] Bx in last 5 years No 10/21/2020 8:58 AM CDT [facility] Menstrual Status Postmenopausal 10/21/2020 8:58 AM CDT [facility] [place] Bx Done Today No 10/21/2020 8:58 AM CDT [facility] Additional Information None given 10/21/2020 8:58 AM CDT [facility] Comment: Cytology is screened at [facility] - [address], [place] [address] and [facility] - [address], [place] [address] and [facility] - [address] [place] [address] Interpreted at [facility] - [address], [place] [address] Automated Review Successful 10/21/2020 8:58 AM CDT [facility] Comment:Specimen processed s uccessfully by automated assembler deck and hull device, ThinPrep Imaging System, [employer] Note The pap test is a screening technique, not a diagnostic procedure. It is used primarily to screen for squamous cancers and precursor lesions. Published studies have shown that it is subject to both false negative and false positive results. The pap test should not be used as the sole means to diagnose or exclude pre-malignant and malignant lesions. 10/21/2020 8:58 AM CDT [facility] Other (Cervical) Non-Blood / Unknown 10/12/2020 2:30 PM CDT 10/12/2020 2:37 PM CDT us Librado Tong MD PATHOLOGY/CYTOLOGY Fin al Result [facility] [address] [place] [address], [place] from Last 3 Months or Most Recently Relevant to Health Maintenance Insurance [facility] [place] [address] [facility] Advance Directives Documents on File Type Date Recorded Patient Anesthesiologist And Critical Care Expl anation Healthcare Directive 06/22/2023 024 * Full Code (Latest Code Status on File) Date Activated Date Inactivated Comments 01/25/2024 8:20 AM 01/29/2024 2:03 PM Question Answer Comments Code Status Discussion: Reviewed Preferences * Full Code Date Activated Date Inactivated Comments 01/24/2024 8:38 PM 01/25/2024 8:20 AM Question Answer Comments Code Status Discussion: Unable to Assess Preferences, Provider to review later * Full Code Date Activated Date Inactivated Comments 01/24/2024 2:06 PM 01/24/2024 6:18 PM Question Answer Comments Code Status Discussion: Reviewed Preferences * Full Code Date Activated Date Inactivated Comments 01/22/2024 5:03 PM 01/24/2024 2:05 PM Question Answer Comments Code Status Discussion: Unable to Assess Preferences, Provider to review later * Full Code Date Activated Date Inactivated Comments 06/21/2023 1:21 PM 06/22/2023 1:22 PM Question Answer Comments Code Status Discussion: Reviewed Preferences Care Teams [employer] Relationship Specialty Start Date End Date William Sandhu MD [address] [place] [address] PCP - General Family Practice 01/21/25
--- OUTSIDE RECORDS SUMMARY | 2025-01-22 12:38 | XMS_ITS | Encounter Summary ---
Author Organization [facility] Address [address] [place] [address] Care Team Providers Care Delivery Specialist Name Role Phone Tyrell Tong MD Primary Care Provider Mary Hubbard MD Unavailable [phone] Vicky Medeiros RN Unavailable [phone] Encounter Details Date Type Department Care Team (Late st Contact Info) Description 03/08/2020 [facility] Medical Advice [facility] [address] [address] Sb Boateng PA-C [address] [place] [address] Social History Tobacco Use Types Packs/Day Years Used Date Smoking Tobacco: Never Smokeless Tobacco: Never Alcohol Use Standard Drinks/Week Comments Not Currently 5 (1 standard drink = 0.6 oz pur e alcohol) last drink 06/03/2019 PHQ-2 Answer Date Recorded PHQ-2 Score 0 11/07/2018 Comments Unknown Sex and Gender Information Value Date Recorded Sex Assigned at Female 05/19/2021 11:35 AM ORCHESTRA CONDUCTOR Legal Sex Female 12:34 PM CDT Gender Identity Female 05/19/2021 11:35 AM ORCHESTRA CONDUCTOR Sexual Orientation Straight 05/19/2021 11 :35 AM ORCHESTRA CONDUCTOR COVID-19 Exposure Response Date Recorded In the last month, have you been in contact with someone who was confirmed or suspected to have Coronavirus / COVID-19? Unable to assess 03/11/2020 11:03 AM CD T documented as of this encounter Plan of Treatment Not on file documented as of this encounter Visit Diagnoses Not on filedocumented in this encounter Care Teams Delivery Specialist Relationship Specialty Start Date End Date Tyrell Tong MD [address] [place] [address] PCP - General Family Practice 10/03/16 Mary Hubbard MD [address] [place] [address] Assigned Neuroscience Provider 03/12/20 03/10/22 Vicky Medeiros RN Specialty Senior Business Development Analyst 06/09/21 documented as of this encounter
--- OUTSIDE RECORDS SUMMARY | 2025-01-22 12:38 | XMS_ITS | Encounter Summary ---
Author Organization [facility] Address [address] [place] [address]. [address] Care Team Providers Care Financial Agent Name Role Phone Tyrell Tong MD Primary Care Provider [phone] Mary Hubbard MD Unavailable [phone] Vicky Medeiros RN Unavailable [phone] Encounter Details Date Type Department Care Team (Late st Contact Info) Description 08/09/2021 [facility] [address] [address] Vicky Medeiros, RN Social History Tobacco Use Types Packs/Day Years Used Date Smoking Tobacco: Never Smokeless Tobacco: Never Alcohol Use Standard Drinks/Week Comments Not Currently 5 (1 standard drink = 0.6 oz pur e alcohol) last drink 06/03/2019 PHQ-2 Answer Date Recorded PHQ-2 Score 0 06/30/2021 Comments Unknown Sex and Gender Information Value Date Recorded Sex Assigned at Female 05/19/2021 11:35 AM ORTHOPEDIC SPECIALIST Legal Sex Female 12:34 PM CDT Gender Identity Female 05/19/2021 11:35 AM ORTHOPEDIC SPECIALIST Sexual Orientation Straight 05/19/2021 11 :35 AM ORTHOPEDIC SPECIALIST documented as of this encounter Plan of Treatment Not on file documented as of this encounter Visit Diagnoses Not on filedocumented in this encounter Care Teams Financial Agent Relationship Specialty Start Date End Date Tyrell Tong MD [address] [place] [address] [place] CÉSAR FINCH [id number] PCP - General Family Practice 10/03/16 Mary Hubbard MD [address] [place] [address] Assigned Neuroscience Provider 03/12/20 03/10/22 Vicky Medeiros RN Specialty Side Seam Machine Operator 06/09/21 documented as of this encounter
--- OUTSIDE RECORDS SUMMARY | 2025-01-22 12:38 | XMS_ITS | Encounter Summary ---
Author Organization [facility] Address [address] [place] [address] Care Team Providers Care Nc Manager Name Role Phone Tyrell Tong MD Primary Care Provider [phone] Mary Hubbard MD Unavailable [phone] Vicky Medeiros RN Unavailable [phone] Encounter Details Date Type Department Care Team (Late st Contact Info) Description 03/08/2020 [facility] [address], [address] [place] [address] Mary Hubbard MD [address] [place] [address] Social History Tobacco Use Types Packs/Day Years Used Date Smoking Tobacco: Never Smokeless Tobacco: Never Alcohol Use Standard Drinks/Week Comments Not Currently 5 (1 standard drink = 0.6 oz pur e alcohol) last drink 06/03/2019 PHQ-2 Answer Date Recorded PHQ-2 Score 0 11/07/2018 Comments Unknown Sex and Gender Information Value Date Recorded Sex Assigned at Female 05/19/2021 11:35 AM SPECIAL EDUCATION COORDINATOR Legal Sex Female 12:34 PM CDT Gender Identity Female 05/19/2021 11:35 AM SPECIAL EDUCATION COORDINATOR Sexual Orientation Straight 05/19/2021 11 :35 AM SPECIAL EDUCATION COORDINATOR COVID-19 Exposure Response Date Recorded In the last month, have you been in contact with someone who was confirmed or suspected to have Coronavirus / COVID-19? Unable to assess 03/11/2020 11:03 AM CD T documented as of this encounter Plan of Treatment Not on file documented as of this encounter Visit Diagnoses Not on filedocumented in this encounter Care Teams Nc Manager Relationship Specialty Start Date End Date Tyrell Tong MD [address] [place] [address] PCP - General Family Practice 10/03/16 Mary Hubbard MD [address] [place] [address] Assigned Neuroscience Provider 03/12/20 03/10/22 Vicky Medeiros RN Specialty Key Account Executive 06/09/21 documented as of this encounter
--- OUTSIDE RECORDS SUMMARY | 2025-01-22 12:39 | XMS_ITS | Encounter Summary ---
Author Organization [facility] Address [address] [place] [address] Care Team Providers Care Marketing Associate Name Role Phone Tyrell Tong MD Primary Care Provider [phone] Mary Hubbard MD Unavailable [phone] Vicky Medeiros RN Unavailable [phone] Encounter Details Date Type Department Care Team (Late st Contact Info) Description 12/06/2020 [facility] [place] [facility] [address] [address] Sb Boateng PA-C [address] [place] [address] Social History Tobacco Use Types Packs/Day Years Used Date Smoking Tobacco: Never Smokeless Tobacco: Never Alcohol Use Standard Drinks/Week Comments Not Currently 5 (1 standard drink = 0.6 oz pur e alcohol) last drink 06/03/2019 PHQ-2 Answer Date Recorded PHQ-2 Score 0 09/09/2020 Comments Unknown Sex and Gender Information Value Date Recorded Sex Assigned at Female 05/19/2021 11:35 AM SERVICE CENTER TECHNICIAN Legal Sex Female 12:34 PM CDT Gender Identity Female 05/19/2021 11:35 AM SERVICE CENTER TECHNICIAN Sexual Orientation Straight 05/19/2021 11 :35 AM SERVICE CENTER TECHNICIAN documented as of this encounter Plan of Treatment Not on file documented as of this encounter Visit Diagnoses Not on filedocumented in this encounter Care Teams Marketing Associate Relationship Specialty Start Date End Date Tyrell Tong MD [address] [place] [address] PCP - General Family Practice 10/03/16 Mary Hubbard MD [address] [place] [address] Assigned Neuroscience Provider 03/12/20 03/10/22 Vicky Medeiros, RN Specialty Bone Char Operator 06/09/21 documented as of this encounter
--- OUTSIDE RECORDS SUMMARY | 2025-01-22 12:39 | XMS_ITS | Encounter Summary ---
Author Organization [facility] Address [address] [place] [address] Care Team Providers Care Ground Instructor Basic Name Role Phone Tyrell Tong MD Primary Care Provider [phone] Mary Hubbard MD Unavailable [phone] Vicky Medeiros RN Unavailable [phone] Reason for Visit * Reason Onset Date Comments Refill Request 02/14/2021 Encounter Details Date Type Department Care Team (Late st Contact Info) Description 02/14/[address] [facility] [address] [address] Sb Boateng PA-C [address] [place] [address] Refill Request Social History Tobacco Use Types Packs/Day Years Used Date Smoking Tobacco: Never Smokeless Tobacco: Never Alcohol Use Standard Drinks/Week Comments Not Currently 5 (1 standard drink = 0.6 oz pur e alcohol) last drink 06/03/2019 PHQ-2 Answer Date Recorded PHQ-2 Score 0 09/09/2020 Comments Unknown Sex and Gender Information Value Date Recorded Sex Assigned at Female 05/19/2021 11:35 AM GAS GOLF CART REPAIRER Legal Sex Female 12:34 PM CDT Gender Identity Female 05/19/2021 11:35 AM GAS GOLF CART REPAIRER Sexual Orientation Straight 05/19/2021 11 :35 AM GAS GOLF CART REPAIRER documented as of this encounter Plan of Treatment Not on file documented as of this encounter Visit Diagnoses Diagnosis Alcoholic cirrhosis of liver with ascites (H) Alcoholic cirrhosis of liver documented in this encounter Care Teams Ground Instructor Basic Relationship Specialty Start Date End Date Tyrell Tong MD [address] [place] [address] PCP - General Family Practice 10/03/16 Mary Hubbard MD [address] [place] [id number] Assigned Neuroscience Provider 03/12/20 03/10/22 Vicky Medeiros, RN Specialty Pulmonary Care Nurse 06/09/21 documented as of this encounter
--- OUTSIDE RECORDS SUMMARY | 2025-01-22 12:39 | XMS_ITS | Encounter Summary ---
Author Organization [facility] Address [address] [place] [address] Care Team Providers Care Waterproofing Mixer Name Role Phone Tyrell Tong MD Primary Care Provider [phone] Mary Hubbard MD Unavailable [phone] Vicky Medeiros RN Unavailable [phone] Encounter Details Date Type Department Care Team (Late st Contact Info) Description 05/16/2020 [facility] [place] [facility] [address] [address] Sb Boateng PA-C [address] [place] [address] Social History Tobacco Use Types Packs/Day Years Used Date Smoking Tobacco: Never Smokeless Tobacco: Never Alcohol Use Standard Drinks/Week Comments Not Currently 5 (1 standard drink = 0.6 oz pur e alcohol) last drink 06/03/2019 PHQ-2 Answer Date Recorded PHQ-2 Score 0 11/07/2018 Comments Unknown Sex and Gender Information Value Date Recorded Sex Assigned at Female 05/19/2021 11:35 AM GREEN PIPEFITTER Legal Sex Female 12:34 PM CDT Gender Identity Female 05/19/2021 11:35 AM GREEN PIPEFITTER Sexual Orientation Straight 05/19/2021 11 :35 AM GREEN PIPEFITTER documented as of this encounter Plan of Treatment Not on file documented as of this encounter Visit Diagnoses Not on filedocumented in this encounter Care Teams Waterproofing Mixer Relationship Specialty Start Date End Date Tyrell Tong MD [address] [facility] [place] [address] PCP - General Family Practice 10/03/16 Mary Hubbard MD [address] [place] [address] Assigned Neuroscience Provider 03/12/20 03/10/22 Vicky Medeiros, RN Specialty Property Management Intern 06/09/21 documented as of this encounter
--- OUTSIDE RECORDS SUMMARY | 2025-01-22 12:39 | XMS_ITS | Encounter Summary ---
Author Organization [facility] Address [address] [place] [address] Care Team Providers Care Surveillance System Monitor Name Role Phone Tyrell Tong MD Primary Care Provider [phone] Mary Hubbard MD Unavailable [phone] Vicky Medeiros RN Unavailable [phone] Encounter Details Date Type Department Care Team (Late st Contact Info) Description 02/15/2021 [facility] [place] [facility] [address] [address] Sb Boateng PA-C [address] [place] [address] Social History Tobacco Use Types Packs/Day Years Used Date Smoking Tobacco: Never Smokeless Tobacco: Never Alcohol Use Standard Drinks/Week Comments Not Currently 5 (1 standard drink = 0.6 oz pur e alcohol) last drink 06/03/2019 PHQ-2 Answer Date Recorded PHQ-2 Score 0 09/09/2020 Comments Unknown Sex and Gender Information Value Date Recorded Sex Assigned at Female 05/19/2021 11:35 AM LEAD ETL DEVELOPER Legal Sex Female 12:34 PM CDT Gender Identity Female 05/19/2021 11:35 AM LEAD ETL DEVELOPER Sexual Orientation Straight 05/19/2021 11 :35 AM LEAD ETL DEVELOPER documented as of this encounter Plan of Treatment Not on file documented as of this encounter Visit Diagnoses Not on filedocumented in this encounter Care Teams Surveillance System Monitor Relationship Specialty Start Date End Date Tyrell Tong MD [address] [place] [address] PCP - General Family Practice 10/03/16 Mary Hubbard MD [address] [place] [address] Assigned Neuroscience Provider 03/12/20 03/10/22 Vicky Medeiros, RN Specialty Manager Speech 06/09/21 documented as of this encounter
--- OUTSIDE RECORDS SUMMARY | 2025-01-22 12:39 | XMS_ITS | Encounter Summary ---
Author Organization [facility] Address [address] [place] [address] Care Team Providers Care Flower Buncher Or Picker Name Role Phone Tyrell Tong MD Primary Care Provider [phone] Mary Hubbard MD Unavailable [phone] Vicky Medeiros RN Unavailable [phone] Encounter Details Date Type Department Care Team (Late st Contact Info) Description 03/17/2020 [facility] [place] [facility] [address] [address] Catherine Woodard, RANGE SCIENTIST Social History Tobacco Use Types Packs/Day Years Used Date Smoking Tobacco: Never Smokeless Tobacco: Never Alcohol Use Standard Drinks/Week Comments Not Currently 5 (1 standard drink = 0.6 oz pur e alcohol) last drink 06/03/2019 PHQ-2 Answer Date Recorded PHQ-2 Score 0 11/07/2018 Comments Unknown Sex and Gender Information Value Date Recorded Sex Assigned at Female 05/19/2021 11:35 AM FIRE EQUIPMENT REPAIRER INSPECTOR Legal Sex Female 12:34 PM CDT Gender Identity Female 05/19/2021 11:35 AM FIRE EQUIPMENT REPAIRER INSPECTOR Sexual Orientation Straight 05/19/2021 11 :35 AM FIRE EQUIPMENT REPAIRER INSPECTOR COVID-19 Exposure Response Date Recorded In the last month, have you been in contact with someone who was confirmed or suspected to have Coronavirus / COVID-19? No / Unsure 03/15/2020 10:56 AM CDT documented as of this encounter Plan of Treatment Not on file documented as of this encounter Visit Diagnoses Not on filedocumented in this encounter Care Teams Flower Buncher Or Picker Relationship Specialty Start Date End Date Tyrell Tong MD [address] [place] [address] PCP - General Family Practice 10/03/16 Mary Hubbard MD [address] [place] [address] Assigned Neuroscience Provider 03/12/20 03/10/22 Vicky Medeiros, RN Specialty Ssn/Ssbn Assistant Navigator 06/09/21 documented as of this encounter
--- OUTSIDE RECORDS SUMMARY | 2025-01-22 12:39 | XMS_ITS | Encounter Summary ---
Author Organization [facility] Address [address] [place] [address]. [place] [address] Care Team Providers Care Buckle Gluer Name Role Phone Tyrell Tong MD Primary Care Provider [phone] Mary Hubbard MD Unavailable [phone] Vicky Medeiros RN Unavailable [phone] Encounter Details Date Type Department Care Team (Late st Contact Info) Description 03/10/2021 [facility] [address] [address] [facility] Social History Tobacco Use Types Packs/Day Years Used Date Smoking Tobacco: Never Smokeless Tobacco: Never Alcohol Use Standard Drinks/Week Comments Not Currently 5 (1 standard drink = 0.6 oz pur e alcohol) last drink 06/03/2019 PHQ-2 Answer Date Recorded PHQ-2 Score 0 09/09/2020 Comments Unknown Sex and Gender Information Value Date Recorded Sex Assigned at Female 05/19/2021 11:35 AM METAL MOULDER Legal Sex Female 12:34 PM CDT Gender Identity Female 05/19/2021 11:35 AM METAL MOULDER Sexual Orientation Straight 05/19/2021 11 :35 AM METAL MOULDER documented as of this encounter Plan of Treatment Not on file documented as of this encounter Visit Diagnoses Not on filedocumented in this encounter Care Teams Buckle Gluer Relationship Specialty Start Date End Date Tyrell Tong MD [address] [place] [address] JULIO CÉSAR FINCH [address] PCP - General Family Practice 10/03/16 Mary Hubbard MD [address] [place] [address] Assigned Neuroscience Provider 03/12/20 03/10/22 Vicky Medeiros RN Specialty Associate Sales Manager 06/09/21 documented as of this encounter
--- OUTSIDE RECORDS SUMMARY | 2025-01-22 12:39 | XMS_ITS | Clinical Summary ---
Author Organization [facility] Address [address] [place] [address] Care Team Providers Care Cosmetics Supervisor Name Role Phone Elsewhere, Pcp Primary Care Provider Unavailabl e Source Comments Patient records contain information from all sites at [facility]. For routine questions regarding patient records, call [phone] during business hours, M-F 8:00 AM - 5:00 PM Central Time. Record requests for emergency care only can be directed to [phone] at any time.[facility] Allergies Active Allergy Reactions Criticality Noted Date Comments Blood-Group Specific Substance Other (see comments) 05/25/2021 Patient has an anti-Kpa antibody and a nonspecific antibody. Blood products may be delayed. Draw patient 24 hours prior to transfusion. For [facility] testing, draw one red top and two purple top tubes for all Type and Screen orders. Patient has an anti-Kpa antibody and a nonspecific antibody. Blood products may be delayed. Draw patient 24 hours prior to transfusion. For [facility] testing, draw one red top and two purple top tubes for all Type and Screen orders. Patient has an anti-Kpa antibody and a nonspecific antibody. Blood products may be delayed. Draw patient 24 hours prior to transfusion. For [facility] testing, draw one red top and two purple top tubes for all Type and Screen orders. Lamotrigine Other (see comments) 07/11/2018 confusion Medications * This document contains information received from the source organization and may not represent a complete record from that organization. levETIRAcetam (KEPPRA) 500 mg tablet Take 1 tablet (500 mg total) by mouth 2 (two) times a day. 60 tablet 2 Active Additional Information Patient taking differently:500 mg oral 2 times daily,TAKING, Reported on 06/02/2022 prochlorperazin e (COMPAZINE) 5 mg tablet Take 5 mg by mouth every 6 (six) hours as needed. 2 Active gabapentin (Neurontin) 100 mg capsule Take 100 mg by mouth 3 (three) times a day. Active traZODone (DesyreL) 50 mg tablet Take 50 mg by mouth at bedtime. Active acamprosate (Campral) 333 mg EC tablet Take 2 tablets (666 mg total) by mouth 3 (three) times a day. 180 tablet 10/02/2024 5:16 PM CDT 5 Active lactulose 10 gram/15 mL solution Take 15 mL (10 g total) by mouth 2 (two) times a day. 900 mL 10/02/2024 5:16 PM CDT 5 Active rifAXIMin (Xifaxan) 550 mg tabletIndicatio ns:Cirrhosis Alcoholic (HCC),Encephalo kathy Metabolic Take 1 tablet (550 mg total) by mouth 2 (two) times a day. 60 tablet 11 10/02/2024 5:16 PM CDT 5 10/03/19 26 Active multivitamin with folic acid 400 mcg tablet Take 1 tablet by mouth daily. 100 tablet 2 10/02/2024 5:16 PM CDT 5 Active spironolactone (Aldactone) 100 mg tablet Take 1 tablet (100 mg total) by mouth daily. 30 tablet 11 10/02/2024 5:16 PM CDT 5 Active furosemide (Lasix) 40 mg tablet Take 1 tablet (40 mg total) by mouth daily. 30 tablet 11 10/02/2024 5:16 PM CDT 5 Active thiamine (Vitamin B-1) 100 mg tablet Take 1 tablet (100 mg total) by mouth daily. 100 tablet 2 10/02/2024 5:16 PM CDT 5 Active Active Problems Problem Noted Date Diagnosed Date Overdose Drug Initial 09/21/2024 Failure Renal Acute (Acute Kidney Injury) 2021 Body Mass Index 19.9 Or Less Adult 09/01/2021 Acidosis Metabolic 07/17/2021 Anemia Iron Deficiency Blood Loss Chronic 2021 Hypocalcemia 07/17/2021 Respiratory Failure With Hypoxia 06/15/2021 Encephalopathy Metabolic 06/12/2021 Cirrhosis Alcoholic 05/31/2021 Weakness General 05/30/2021 Acidosis Unspecified 05/06/2021 Elevation Of Levels Of Liver Transaminase Levels 05/06/2021 Urinary Tract Infection Site Not Specified 05/06 Jaundice 05/06/2021 Cirrhosis Alcoholic 05/06/2021 Acute And Subacute Hepatic Failure Without Coma 11/28/2019 Hypokalemia 11/28/2019 Hypomagnesemia 11/28/2019 Hyponatremia 11/28/2019 Malnutrition Severe Protein-Calorie 11/28/2019 Other Specified Abnormal Findings Of Blood Chemi stry 11/28/2019 Sore Throat 11/28/2019 Liver Alcoholic Disease 11/28/2019 Moderate Or Severe Use Disor lauren (Dependence) Alcohol Remission 07/11/2018 Overview (07/11/2018): Overview: s/p treatment Eating Disorder 07/11/2018 Seizure Disorder 07/11/2018 Amenorrhea 07/11/2018 Other Iron Deficiency Anemias 07/11/2018 Cystitis 05/25/2016 Alcohol Moderate Or Severe U se Disorder (Dependence) With Withdrawal Delirium 05/24/2016 Macrocytosis 05/23/2016 Anxiety Disorder Unspecified 03/29/2014 Resolved Problems Problem Noted Date Diagnosed Date Resolved Date Alcoholic Cirrhosis Of Liver With Ascites 08/19/2021 06/06/2022 Hepatorenal Syndrome 08/17/2021 023 Shock Septic Non Postoperative 07/17/2021 06/06/2022 Hemorrhage Gastrointestinal 05/31/2021 06/06/2022 Anemia Posthemorrhagic Acute (Blood Loss Anemia) 05/31/2021 06/06/2022 Hyperammonemia 05/20/2021 06/06/2022 Confusion 02/28/2020 06/06/2022 Hypotension 11/30/2019 06/06/2022 Abnormal Weight Gain 07/11/2018 023 Alcohol Induced Acute Pancre atitis Without Necrosis Or Infection 08/19/2016 06/06/2022 Alcoholic Hepatitis Without Ascites 05/23/2016 06/06/2022 Poisoning By Unspecified Adam alas Acting On Muscles Accidental Unintentional Initial 03/28/2014 06/06/2022 Immunizations Immunization Administration Dates Next Due 4vHPV (discontinued) 04/17/2007 DTP 11/14/1993, 1,04/17/1990,1989 H1N1 All Forms 03/30/2009 HepB Pediatric/Adolescent 09/04/2002,09/04/2002 Hib (HbOC) (discontinued) 11/14/1993,09/26/1990 Influenza Split 03/28/2014 Influenza TIV (IM) 03/10/2013, 2,03/09/2010,2008 Influenza, Injectable, Quadrivalent 08/20/2016,1 05/30/2013 Influenza, Seasonal, Injectable 03/10/2013,02/15,03/09/2010 MCV4 (Menactra)(Discontinued) 04/17/2007 MMR 09/04/2002,11/14/1993 OPV, Trivalent 11/14/1993,04/17/1990,1989 PPSV23 03/31/2014 Td (Adult), adsorbed 09/04/2002 Td, (Adult) Unspecified 09/04/2002 Tdap 02/16/2012 influenza trivalent vaccine (6 months and older)(PF) 04/30/2009 influenza vaccine quad (FLUZONE/FLUARIX) (6 months and older)(PF) 08/20/2016,03/30/2014 Family History Medical History Relation Name Comments Osteoarthritis Mother Osteoporosis Mother Relation Name Status Comments Mother Social History Tobacco Use Types Packs/Day Years Used Date Smoking Tobacco: Former Smokeless Tobacco: Never Tobacco Cessation:Counseling Given: Not Answered Alcohol Use Standard Drinks/Week Comments Yes 0 (1 standard drink = 0.6 oz pure alcohol) pt reports drinking a lot hard liquor, last drink [facility] Utilities Answer Date Recorded In the past 12 months has e [employer], gas, oil, or water [employer] threatened to shut off services in your home? No 09/21/2024 Humiliation, Afraid, Rape, and Kick questionnair e Answer Date Recorded Within the last year, have y ou been afraid of your partner or ex-partner? No 09/21/2024 Within the last year, have y ou been humiliated or emotionally abused in other ways by your partner or ex-partner? No Within the last year, have y ou been kicked, hit, slapped, or otherwise physically hurt by your partner or ex-partner? No 09/21/2024 Within the last year, have y ou been raped or forced to have any kind of sexual activity by your partner or ex-partner? No 09/21/2024 Hunger Vital Sign Answer Date Recorded Within the past 12 months, y ou worried that your food would run out before you got the money to buy more. Never true 09/22/19 25 Within the past 12 months, t he food you bought just didn't last and you didn't have money to get more. Never true 09/21/2024 PRAPARE - Transportation Answer Date Re corded In the past 12 months, has l ack of transportation kept you from medical appointments or from getting medications? No 08/2024 In the past 12 months, has l ack of transportation kept you from meetings, work, or from getting things needed for daily living? No 09/21/2024 Housing Stability Answer Date Recorded What is your living situation today? I have a [facility] place to live 09/21/2024 Education Answer Date Recorded What is the highest level of school you have completed or the highest degree you have received? 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 Not on file Not on file Not on file Last Filed Vital Signs Vital Sign Reading Time Taken Comments Blood Pressure 105/67 10/02/2024 4:16 PM CDT Pulse 77 10/02/2024 4:16 PM CDT Temperature 37.2 C (99 F) 10/02/2024 4:16 PM CDT Respiratory Rate 15 10/02/2024 4:16 PM CDT Oxygen Saturation 95% 10/02/2024 4:16 PM CDT Inhaled Oxygen Concentration - - Weight 57.2 kg (126 lb 1.7 oz) 09/30/2024 5:00 A M CDT Height 171 cm (5' 7.32) 09/25/2024 11:04 AM CDT Body Mass Index 19.56 09/25/2024 11:04 AM CDT Plan of Treatment Health Maintenance Due Date Last Done Comments Pneumococcal vaccine (0-49 y ears) (2 of 2 - PCV) 03/31/2015 03/31/2014 Hepatitis A Vaccines (2 of 2 - Risk 2-dose series) 12/08/2019 06/09/2019 DTaP,Tdap,and Td Vaccines (6 - Td or Tdap) 02/15/2022 02/16/2012, 09/04/2002, 09/04/2002, Additional history exists Cervical/Vaginal Cancer Screening 10/13/2023 021 Depression Screening (Annual PHQ-2) 05/21/2024 COVID-19 Vaccine (1 - 2023-2 5 season) 2025 Influenza Vaccine (#1) 2025 , 06/09/2019, 08/20/2016, Additional history exists Abdominal Ultrasound 03/24/2025 09/21/2024, 06/29/2023, 06/29/2023, Additional history exists Creatinine Level (Kidney Fun ction Test) 10/06/2025 10/06/2024, 10/02/2024, 10/01/2024, Additional history exists Potassium Level 10/06/2025 10/06/2024, 09/18, 10/01/2024, Additional history exists Sodium Level 10/06/2025 10/06/2024, 09/18, 10/01/2024, Additional history exists Lipid (Cholesterol) Screening 01/24/2029 01/25/2024 IPV Vaccines Completed 11/14/1993, 03/22, 1989 HPV Vaccines Completed 07/29/2013, 08/0 06/2012, 04/17/2007 Hepatitis B Screening Discontinued 05/09/2021, 020 HIV Screening Completed 06/16/2021 Medical Devices Implanted Type Area Metal Container Maker Device Identifier Shelf Expiration Date Model / Serial / Lot Coil [employer] [id number] - [id number] Implanted:Qty : 1 on 07/21/2021 by Shantel oRse M.D. at [facility] [employer] 12/11/2023 [id number] / / [id number] [employer] [id number] - [id number] Implanted:Qty : 1 on 07/21/2021 by Shantel Rose M.D. at [facility] [employer] 11/02/2025 [id number] / / [id number] [employer] [id number] - [id number] Implanted:Qty : 1 on 07/21/2021 by Shantel Rose M.D. at [facility] [employer] 11/16/2023 [id number] / / [id number] [employer] [id number] - [id number] Implanted:Qty : 1 on 07/21/2021 by Shantel Rose M.D. at [facility] [employer] 04/26/2026 [id number] / / [id number] Procedures Procedure Name Priority Date/Time Associated Diagnosis Comments RENAL FUNCTION PANEL, S Routine 10/02/2024 4:46 AM CDT US LIVER DOPPLER RAD - Semiurgent (Fast; most ED patients; some inpatients) 09/21/2024 4:34 AM CDT HIV-1/-2 AG AND AB SCREEN, PLASMA Timed 06/16/2021 12:22 PM CONDUIT BENDER from Last 3 Months or Most Recently Relevant to Health Maintenance Results * (ABNORMAL) Renal Function Panel (10/02/2024 4:46 AM CDT) Potassium, S 4.2 3.6 - 5.2 mmol/L 10/02/2024 7:14 AM CDT DTL Sodium, S 135 135 - 145 mmol/L 10/02/2024 7:14 AM CDT DTL Chloride, S 106 98 - 107 mmol/L 10/02/2024 7:14 AM CDT DTL Bicarbonate, S 18(L) 22 - 29 mmol/L 10/02/2024 7:14 AM CDT DTL Anion Gap 11 7 - 15 10/02/2024 7:14 AM CDT DTL BUN (Blood Urea Nitrogen), S 11 6 - 21 mg/dL 10/02/2024 7:14 AM CDT DTL Creatinine 1.31(H) 0.59 - 1.04 mg/dL 10/02/2024 7:14 AM CDT DTL Estimated GFR (eGFR) 54(L) >=60 mL/min/BSA 10/02/2024 7:14 AM CDT DTL Comment: Estimated GFR calculated using the 2020 CKD_EPI creatinine equation. Calcium, Total, S 8.0(L) 8.6 - 10.0 mg/dL 10/02/2024 7:14 AM CDT DTL Glucose, S 94 70 - 140 mg/dL 10/02/2024 7:14 AM CDT DTL Albumin, S 3.2(L) 3.5 - 5.0 g/dL 10/02/2024 7:14 AM CDT DTL Phosphorus (Inorganic), S 2.7 2.5 - 4.5 mg/dL 10/02/2024 7:14 AM CDT DTL Blood (Blood, Venous) 10/02/2024 4:46 AM CDT 10/02/2024 6:01 AM CDT us Tomasa Mortensen M.D. LAB BLOOD ADD-ON Final Resul t [facility] [address] [place] [address], [facility] [address] [place] [address] * US Liver Doppler (09/21/2024 4:34 AM CDT) Anatomical Region Laterality Modality Abdomen, Ultrasound RST LOS, Ultrasound ARZ LOS, Ultrasound FLA LOS, Procedural, Vascular Interventional NWWI LOS N/A Ultr asound Impressions 09/21/2024 8:25 AM CDT 1. Coarsened hepatic echotexture consistent with chronic parenchymal disease. Cirrhotic morphology. 2. Diffuse hepatic steatosis. 3. Normal hepatic Doppler evaluation. Ultrasound LI-RADS score is as follows: Ultrasound Category: US-1: Negative (No US evidence of HCC). Recommend continued routine surveillance. Visualization Score: B: Moderate limitations (limitations may obscure small masses, especially < 1 cm). Ultrasound LI-RADS is a standardized system for imaging technique, interpretation, reporting, and data collection for screening or surveillance ultrasound exams in patients at risk for developing HCC. Ultrasound LI-RADS is supported and endorsed by the [employer]. More information can be found on the following link [email or web address] Narrative 09/21/2024 8:25 AM CDT EXAM: US LIVER DOPPLER Exam performed with color and spectral Doppler analysis. COMPARISON: Abdominal ultrasound 06/29/2023, abdominal MRI 06/29/2023 FINDINGS: Liver: Slightly coarsened echotexture. Diffuse hepatic steatosis. No focal observations. Cirrhotic contour. Intrahepatic ducts: Not dilated. Common duct: Not dilated. Doppler: Portal and hepatic veins are patent with antegrade flow. The main hepatic artery is patent with antegrade flow. Procedure Note Damian Jung M.D. - 09/21/2024 EXAM: US LIVER DOPPLER Exam performed with color and spectral Doppler analysis. COMPARISON: Abdominal ultrasound 06/29/2023, abdominal MRI 06/29/2023 FINDINGS: Liver: Slightly coarsened echotexture. Diffuse hepatic steatosis. No focalobservations. Cirrhotic contour. Intrahepatic ducts: Not dilated. Common duct: Not dilated. Doppler: Portal and hepatic veins are patent with antegrade flow. The mainhepatic artery is patent with antegrade flow. IMPRESSION: 1. Coarsened hepatic echotexture consistent with chronic parenchymaldisease. Cirrhotic morphology. 2. Diffuse hepatic steatosis. 3. Normal hepatic Doppler evaluation. Ultrasound LI-RADS score is as follows: Ultrasound Category: US-1: Negative (No US evidence of HCC). Recommendcontinued routine surveillance. Visualization Score: B: Moderate limitations (limitations may obscuresmall masses, especially < 1 cm). Ultrasound LI-RADS is a standardized system for imaging technique,interpretation, reporting, and data collection for screening orsurveillance ultrasound exams in patients at risk for developing HCC.Ultrasound LI-RADS is supported and endorsed by the [employer]. More information can be found on thefollowing [email or web address] us Bernabe Sewell M.D. IMG US PROCEDURES Final Re sult * HIV-1/-2 Ag and Ab Screen, Plasma (06/16/2021 12:22 PM CONDUIT BENDER) HIV-1/-2 Ag and Ab Screen, P Negative Negative 06/16/2021 9:15 PM CONDUIT BENDER [facility] Comment: Negative result does not rule out HIV infection. If exposure to HIV infection occurred <14 days ago, contact the laboratory to request addition of HIV-1 RNA detection / quantification test (HIVQN). Blood (Blood, Venous) 06/16/2021 12:22 PM CONDUIT BENDER 06/16/2021 4:54 PM CONDUIT BENDER us Shantel Hilliard M.D. LAB MICROBIOLOGY - BLOOD ORDER CORBY Final Result ED [facility] [place] [address] [address] [facility] Dept. of Laboratory Medicine and Pathology [address] [id number] from Last 3 Months or Most Recently Relevant to Health Maintenance Insurance [place] [id number] [facility] Advance Directives For more information, please contact: [phone] Documents on File Type Date Recorded Patient Rotary Saw Operator Expl anation Advance Directives 07/29/2021 4:30 PM Kahlil Preciado HCPOA/ADVOCATE/AGENT/R EPRESENTATIVE/SURROGAT E * Full Code (Latest Code Status on File) Date Activated Date Inactivated Comments 09/21/2024 1:42 AM 10/02/2024 7:02 PM Question Answer Comments Full Code: Discussed * Full Code Date Activated Date Inactivated Comments 08/17/2021 7:43 PM 08/23/2021 10:06 PM Question Answer Comments Full Code: Discussed * Full Code Date Activated Date Inactivated Comments 07/16/2021 12:59 AM 08/01/2021 7:42 PM Question Answer Comments Full Code: Discussed * Full Code Date Activated Date Inactivated Comments 07/16/2021 12:50 AM 07/16/2021 12:59 AM Question Answer Comments Full Code: Discussed * Full Code Date Activated Date Inactivated Comments 06/12/2021 6:06 AM 06/30/2021 4:24 PM Question Answer Comments Full Code: Discussed Healthcare Agents on File Name Relationship Healthcare Agent Relationship Communication Kahlil Preciado Unknown Health Care Agent Erica Preciado Unknown First Alternate Health Care Agent Care Teams Cosmetics Supervisor Relationship Specialty Start Date End Date Elsewhere, Pcp PCP - General Internal Medicine 08/17/21
--- OUTSIDE RECORDS SUMMARY | 2025-01-22 12:39 | XMS_ITS | Encounter Summary ---
Author Organization [place] Address [address] [place] [address] Care Team Providers Care Nitriles Lab Technician Name Role Phone Tyrell Tong MD Primary Care Provider [phone] Mary Hubbard MD Unavailable [phone] Vicky Medeiros RN Unavailable [phone] Encounter Details Date Type Department Care Team (Late st Contact Info) Description 04/07/2020 [facility] [place] [facility] [address] [address] Sb Boateng PA-C [address] [place] [address] Social History Tobacco Use Types Packs/Day Years Used Date Smoking Tobacco: Never Smokeless Tobacco: Never Alcohol Use Standard Drinks/Week Comments Not Currently 5 (1 standard drink = 0.6 oz pur e alcohol) last drink 06/03/2019 PHQ-2 Answer Date Recorded PHQ-2 Score 0 11/07/2018 Comments Unknown Sex and Gender Information Value Date Recorded Sex Assigned at Female 05/19/2021 11:35 AM TELEPHONE TECHNICIAN Legal Sex Female 12:34 PM CDT Gender Identity Female 05/19/2021 11:35 AM TELEPHONE TECHNICIAN Sexual Orientation Straight 05/19/2021 11 :35 AM TELEPHONE TECHNICIAN COVID-19 Exposure Response Date Recorded In the last month, have you been in contact with someone who was confirmed or suspected to have Coronavirus / COVID-19? No / Unsure 03/15/2020 10:56 AM CDT documented as of this encounter Plan of Treatment Not on file documented as of this encounter Visit Diagnoses Not on filedocumented in this encounter Care Teams Nitriles Lab Technician Relationship Specialty Start Date End Date Tyrell Tong MD [address] [place] [address] PCP - General Family Practice 10/03/16 Mary Hubbard MD [address] [place] [address] Assigned Neuroscience Provider 03/12/20 03/10/22 Vicky Medeiros, RN Specialty Mechanical Striper 06/09/21 documented as of this encounter
--- OUTSIDE RECORDS SUMMARY | 2025-01-22 12:39 | XMS_ITS | Encounter Summary ---
Author Organization [place] Address [address] [place] [address] Care Team Providers Care Box Toe Flanger Stitchdowns Name Role Phone Tyrell Tong MD Primary Care Provider Mary Hubbard MD Unavailable [phone] Vicky Medeiros RN Unavailable [phone] Encounter Details Date Type Department Care Team (Late st Contact Info) Description 10/12/2020 [facility] Medical Advice Phys[facility] Epilepsy Care [address], [address] [place] [address] Mary Hubbard MD [address] [place] [address] Social History Tobacco Use Types Packs/Day Years Used Date Smoking Tobacco: Never Smokeless Tobacco: Never Alcohol Use Standard Drinks/Week Comments Not Currently 5 (1 standard drink = 0.6 oz pur e alcohol) last drink 06/03/2019 PHQ-2 Answer Date Recorded PHQ-2 Score 0 09/09/2020 Comments Unknown Sex and Gender Information Value Date Recorded Sex Assigned at Female 05/19/2021 11:35 AM FISHING LURE ASSEMBLER Legal Sex Female 12:34 PM CDT Gender Identity Female 05/19/2021 11:35 AM FISHING LURE ASSEMBLER Sexual Orientation Straight 05/19/2021 11 :35 AM FISHING LURE ASSEMBLER documented as of this encounter Plan of Treatment Not on file documented as of this encounter Visit Diagnoses Not on filedocumented in this encounter Care Teams Box Toe Flanger Stitchdowns Relationship Specialty Start Date End Date Tyrell Tong MD [address] [place] [address] PCP - General Family Practice 10/03/16 Mary Hubbard MD [address] [place] [address] Assigned Neuroscience Provider 03/12/20 03/10/22 Vicky Medeiros, RN Specialty State Archivist 06/09/21 documented as of this encounter
--- OUTSIDE RECORDS SUMMARY | 2025-01-22 12:39 | XMS_ITS | Encounter Summary ---
Author Organization [place] Address [address] [place] [address] Care Team Providers Care Fish Culturist Name Role Phone Tyrell Tong MD Primary Care Provider [phone] Mary Hubbard MD Unavailable [phone] Vicky Medeiros RN Unavailable [phone] Encounter Details Date Type Department Care Team (Late st Contact Info) Description 10/12/2020 [facility] [place] [facility] [address] [address] Sb Boateng PA-C [address] [place] [address] Social History Tobacco Use Types Packs/Day Years Used Date Smoking Tobacco: Never Smokeless Tobacco: Never Alcohol Use Standard Drinks/Week Comments Not Currently 5 (1 standard drink = 0.6 oz pur e alcohol) last drink 06/03/2019 PHQ-2 Answer Date Recorded PHQ-2 Score 0 09/09/2020 Comments Unknown Sex and Gender Information Value Date Recorded Sex Assigned at Female 05/19/2021 11:35 AM INSOLE AND OUTSOLE PREPARER Legal Sex Female 12:34 PM CDT Gender Identity Female 05/19/2021 11:35 AM INSOLE AND OUTSOLE PREPARER Sexual Orientation Straight 05/19/2021 11 :35 AM INSOLE AND OUTSOLE PREPARER documented as of this encounter Plan of Treatment Not on file documented as of this encounter Visit Diagnoses Not on filedocumented in this encounter Care Teams Fish Culturist Relationship Specialty Start Date End Date Tyrell Tong MD [address] [place] [address] PCP - General Family Practice 10/03/16 Mary Hubbard MD [address] [place] [address] Assigned Neuroscience Provider 03/12/20 03/10/22 Vicky Medeiros, RN Specialty Job Tracer 06/09/21 documented as of this encounter
--- OUTSIDE RECORDS SUMMARY | 2025-01-22 12:39 | XMS_ITS | Encounter Summary ---
Author Organization [facility] Address [address] [place] [id number] Care Team Providers Care Bottle Selector Name Role Phone Tyrell Tong MD Primary Care Provider Mary Hubbard MD Unavailable [phone] Vicky Medeiros RN Unavailable [phone] Reason for Visit * Reason Onset Date Comments Refill Request 02/14/2021 Encounter Details Date Type Department Care Team (Late st Contact Info) Description 02/14/2021 MyC Refill [facility] [address] [address] Sb Boateng PA-C [address] [place] [address] Refill Request Social History Tobacco Use Types Packs/Day Years Used Date Smoking Tobacco: Never Smokeless Tobacco: Never Alcohol Use Standard Drinks/Week Comments Not Currently 5 (1 standard drink = 0.6 oz pur e alcohol) last drink 06/03/2019 PHQ-2 Answer Date Recorded PHQ-2 Score 0 09/09/2020 Comments Unknown Sex and Gender Information Value Date Recorded Sex Assigned at Female 05/19/2021 11:35 AM MOTOR VEHICLE REPRESENTATIVE Legal Sex Female 12:34 PM CDT Gender Identity Female 05/19/2021 11:35 AM MOTOR VEHICLE REPRESENTATIVE Sexual Orientation Straight 05/19/2021 11 :35 AM MOTOR VEHICLE REPRESENTATIVE documented as of this encounter Plan of Treatment Not on file documented as of this encounter Visit Diagnoses Diagnosis Alcoholic cirrhosis of liver with ascites (H) Alcoholic cirrhosis of liver documented in this encounter Care Teams Bottle Selector Relationship Specialty Start Date End Date Tyrell Tong MD [address] [place] [address] PCP - General Family Practice 10/03/16 Mary Hubbard MD [address] [place] [address] [id number] Assigned Neuroscience Provider 03/12/20 03/10/22 Vicky Medeiros, RN Specialty Senior Behavioral Scientist 06/09/21 documented as of this encounter
--- OUTSIDE RECORDS SUMMARY | 2025-01-22 12:39 | XMS_ITS | Encounter Summary ---
Author Organization [facility] Address [address] [place] [address] Care Team Providers Care Ream Cutter Name Role Phone Tyrell Tong MD Primary Care Provider [phone] Mary Hubbard MD Unavailable [phone] Vicky Medeiros RN Unavailable [phone] Encounter Details Date Type Department Care Team (Late st Contact Info) Description 06/10/2021 [facility] Medical Advice [facility] [address] [address] Vicky Medeiros, RN Social History [...] Sex Assigned at Female 05/19/2021 11:35 AM BIOMEDICAL EQUIPMENT TECHNICIAN Legal Sex Female 12:34 PM CDT Gender Identity Female 05/19/2021 11:35 AM BIOMEDICAL EQUIPMENT TECHNICIAN Sexual Orientation Straight 05/19/2021 11 :35 AM BIOMEDICAL EQUIPMENT TECHNICIAN COVID-19 Exposure Response Date Recorded In the last month, have you been in contact with someone who was confirmed or suspected to have Coronavirus / COVID-19? No / Unsure 06/09/2021 9:15 AM BIOMEDICAL EQUIPMENT TECHNICIAN documented as of this encounter Plan of Treatment Not on file documented as of this encounter Visit Diagnoses Not on filedocumented in this encounter Care Teams Ream Cutter Relationship Specialty Start Date End Date Tyrell Tong MD [address] [place] [id number] PCP - General Family Practice 10/03/16 Mary Hubbard MD [address] [place] [id number] Assigned Neuroscience Provider 03/12/20 03/10/22 Vicky Medeiros, RN Specialty Coverstitch Binder 06/09/21 documented as of this encounter
--- OUTSIDE RECORDS SUMMARY | 2025-01-22 12:39 | XMS_ITS | Encounter Summary ---
Author Organization [facility] Address [address] [place] [address] Care Team Providers Care Technical Maintenance Technician Name Role Phone Elsewhere, Pcp Primary Care Provider Unavailabl e Encounter Details Date Type Department Care Team (Latest Contact Info) Description 09/20/2024 Intake [facility] Social History Tobacco Use Types Packs/Day Years Used Date Smoking Tobacco: Former Smokeless Tobacco: Never Alcohol Use Standard Drinks/Week Comments Yes 0 (1 standard drink = 0.6 oz pure alcohol) pt reports drinking a lot hard liquor, last drink [facility] [employer] Answer Date Recorded In the past 12 months has [facility] [employer], gas, oil, or water [employer] threatened to shut off services in your [...] your living situation today? I have a [facility] place to live 09/21/2024 Education Answer Date Recorded What is the highest level of school you have completed or the highest degree you have received? Some college, no degree 06/03/2022 Comments Unknown Sex and Gender Information Value Date Recorded Sex Assigned at Female 09/01/2021 3:07 PM CDT Legal Sex Female 10:27 AM SHOW JUMPING INSTRUCTOR Gender Identity Female 09/01/2021 3:07 PM CDT Sexual Orientation Straight 09/01/2021 3: 07 PM CDT Occupation Industry Job Start Date Job End Date [employer] Not on file Not on file Not on file documented as of this encounter Plan of Treatment Not on file documented as of this encounter Visit Diagnoses Not on filedocumented in this encounter Additional Health Concerns Assessment Noted Time PHQ-9 Depression Total Score: 4 03/30/20 14 7:07 PM SHOW JUMPING INSTRUCTOR documented as of this encounter Care Teams Technical Maintenance Technician Relationship Specialty Start Date End Date Elsewhere, Pcp PCP - General Internal Medicine 08/17/21 documented as of this encounter
--- NOTE | 2025-01-22 13:05 | ED_ITS ---
HPI - General Adult General Chief complaint: Unspecified Complaint, Adult Stated complaint: Low K Time Seen by Provider: 01/22/25 12:19 Source: patient Mode of arrival: ambulatory Limitations: no limitations History of Present Illness HPI narrative: 34-year-old female presenting today with hypokalemia. Patient states that she was sent over from the clinic. She denies any symptoms. She states that she has a history of hypokalemia, was on oral potassium replacement until recently when her prescription lapsed and she did not get it filled. Patient has a history of liver cirrhosis secondary to alcohol use, seizure disorder. She is on Lasix. She states that she had labs done in the clinic yesterday and her potassium was 2.5. She was told to come to the ER for IV potassium replacement. She denies nausea or vomiting. Related Data Home Medications ?Medication ?Instructions ?Recorded ?Confirmed furosemide 40 mg tablet 40 mg PO DAILY 01/22/2509/12 lactulose 10 gram/15 mL oral 30 ml PO 3XD PRN constipa tion 01/22/25 01/22/25 solution levetiracetam 500 mg tablet 500 mg PO BID 01/22/2509/12 multivitamin with folic acid 400 1 tab PO DAILY 01/22/25 mcg tablet (One Daily Multivitamin) spironolactone 100 mg tablet 100 mg PO DAILY 01/22/25 01/22/25 Previous Rx's ?Medication ?Instructions ?Recorded potassium chloride 20 mEq 40 meq (2 x 20 mEq) PO TID 2 days 01/22/25 tablet,extended release #12 tabs Allergies Allergy/AdvReac Type Severity Reaction Status Date / Time lamotrigine Allergy Severe Verified 01/22/25 12:01 Review of Systems Status of ROS: Reports: 10 or more systems reviewed and unremarkable except as noted in History and below Exam Narrative: Exam Narrative: Well-nourished well-developed patient in no acute distress. Alert and oriented. Answers questions appropriately. Mood and affect are appropriate. Thoughts are goal oriented and rational. No tangential or magical thinking noted. Patient speaks in full sentences without needing to catch her breath. Patient does not appear ill or toxic. HEENT: Normocephalic atraumatic. Pupils are equally round reactive to light. Extraocular muscles are intact. Conjunctivae are moist without any icterus noted. Moist mucous membranes. Skin: Visible skin is well perfused without any obvious rashes. Const: Vital Signs, click to edit/add: Vital Signs - 24 hr 01/22/25 11:56 Temperature 96.7 F L Pulse Rate [Pulse Oximeter] 63 Respiratory Rate 16 Blood Pressure [Ri ght Upper Arm] 105/73 Pulse Oximetry 100 Oxygen Delivery Me thod Room Air Course Course ED Course: EKG, read by me, shows normal sinus rhythm with a premature atrial complex. She has a pulse of 62, normal QRS, QTC and AK intervals. No T-wave abnormalities. Potassium 2.4. Creatinine 1.3. GFR 55. Patient received 40 mEq of oral potassium in the ED today. Vital Signs Vital signs: Initial Vital Signs Temperature 96.7 F L 01/22/25 11:56 Temperature Source Temporal Artery Scan 01/22/25 11:56 Pulse Rate 63 01/22/25 11:56 Respiratory Rate 16 01/22/25 11:56 Blood Pressure 105/73 01/22/25 11:56 Blood Pressure Mean 83 01/22/25 11:56 Blood Pressure Position Sitting 01/22/25 11:56 Pulse Oximetry 100 01/22/25 11:56 Oxygen Delivery Method Room Air 01/22/25 11:56 Vital Signs Temperature 96.7 F L 01/22/25 11:56 Pulse Rate 63 01/22/25 11:56 Respiratory Rate 16 01/22/25 11:56 Blood Pressure 105/73 01/22/25 11:56 Pulse Oximetry 100 01/22/25 11:56 Oxygen Delivery Method Room Air 01/22/25 11:56 Temperature 96.7 F L 01/22/25 11:56 Pulse Rate 63 01/22/25 11:56 Respiratory Rate 16 01/22/25 11:56 Blood Pressure 105/73 01/22/25 11:56 Pulse Oximetry 100 01/22/25 11:56 Oxygen Delivery Method Room Air 01/22/25 11:56 Medications Administered Medications: Discontinued Medications Generic Name Dose Route Start Last Admin Trade Name Freq PRN Reason Stop Dose Admin Potassium Chloride 40 meq 01/22/25 13:23 01/22/25 13:57 Potassium Chloride 10 Meq Capsule Er PO 01/22/25 13:24 40 meq ONCE ONE Administration Medical Decision Making [facility] Narrative Medical decision making narrative: 34-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 Currently asymptomatic without any EKG changes. Patient will be sent home on 40 mEq of potassium t.i.d. for the next 2 days. She should follow up with primary care provider in 48 hours for repeat potassium check and titration of potassium dosing. Lab Data Lab results reviewed: Yes I reviewed the patient's lab results Labs: Lab Results 01/22/25 Range/Units 12:42 Sodium 136 (135-149) mmol/L Potassium 2.4 L* (3.6-5.1) mmol/L Chloride 95 L (96-114) mmol/L Carbon Dioxide 33 H (20-32) mmol/L Anion Gap 8 (7-15) mEq/L BUN 14 (5-24) mg/dL Creatinine 1.3 (0.5-1.5) mg/dL Estimated Creat Clear 46.28 Estimated GFR 55 ml/min Glucose 114 (60-115) mg/dL Calcium 10.0 (8.4-10.6) mg/dL Magnesium 1.8 (1.5-2.6) mg/dL Discharge Plan Discharge Clinical Impression: Hypokalemia Patient Disposition: Home, Self-Care Condition: Stable Additional Instructions: You will be sent home with oral potassium to take. You should follow-up with your primary care provider in 48 hours to have your potassium levels recheck and to have the dose of your potassium titrated. Return to the emergency department if you experience any muscle aches, weakness or chest pain. Prescriptions: New potassium chloride 20 mEq tablet extended release 40 meq PO TID 2 Days Qty: 12 0RF No Action furosemide 40 mg tablet 40 mg PO DAILY levetiracetam 500 mg tablet 500 mg PO BID spironolactone 100 mg tablet 100 mg PO DAILY lactulose 10 gram/15 mL solution 30 ml PO 3XD PRN (Reason: constipation) multivitamin with folic acid [One Daily Multivitamin] 400 mcg tablet 1 tab PO DAILY Follow Up/Referrals: William Sandhu MD [Primary Care Provider, Family Practice] Stand Alone Forms: [employer] Info Instructions
[2025-01-22 13:09] LABS: Chloride* 95 mmol/L (96-114); Sodium* 136 mmol/L (135-149)
[2025-01-22 13:12] LABS: Anion Gap 8 mEq/L (7-15); Blood Urea Nitrogen* 14 mg/dL (5-24); Calcium* 10.0 mg/dL (8.4-10.6); Carbon Dioxide* 33 mmol/L (20-32); Creatinine* 1.3 mg/dL (0.5-1.5); Est. Creatinine Clearance* 46.28; Estimated Glomerular Filt Rate 55 ml/min; Glucose* 114 mg/dL (60-115)
[2025-01-22 13:17] LABS: Potassium* 2.4 mmol/L (3.6-5.1)
[2025-01-22] MEDS: POTASSIUM CHLORIDE 10 MEQ CAPSULE ER 40 MEQ PO (13:57)
[2025-01-22 14:15] VITALS: BP 105/77; PULSE 71; RESP 18; TEMP 36.6; O2SAT 99
== END 2025-01-22 14:17 | disposition home or self-care (01) ==
PROVIDERS: Emergency Provider Family Medicine; PCP Student in an Organized Health Care Education/Training Program
DX: E87.6 Hypokalemia (principal); Z79.899 Other long term (current) drug therapy
CPT/HCPCS: 36415; 80048; 83735; 93005; 99284; A9270